=== PATIENT | male | born 1950 | race Caucasian/White ===

== ENCOUNTER → 2017-11-04 06:49 | Outpatient (CLI) | payer OTHER, SELFPAY ==
[2017-11-04 09:05] LABS: Alanine Aminotransferase 52 IU/L (21-72); Albumin Globulin Ratio 1.3 (1.0-2.8); Alkaline Phosphatase 52 U/L (38-126); Aspartate Aminotransferase 52 IU/L (17-59); Bilirubin Total 0.4 mg/dL (0.2-1.3); Blood Urea Nitrogen 35 mg/dL (9-20); Calcium 9.1 mg/dL (8.4-10.2); Carbon Dioxide 29 mmol/L (22-32); Chloride 102 mmol/L (98-107); Estimated Glomerular Filt Rate > 60.0 mL/min (>60); Glucose 90 mg/dL (80-110); HEMOLYSIS < 15 (0-50); Sodium 140 mmol/L (137-145)
[2017-11-06 09:57] LABS: Lipoprofile NMR SEE SEPARATE REPORTS
== END ==
PROVIDERS: Visit Provider Specialist
DX: E78.5 Hyperlipidemia, unspecified (principal)
CPT/HCPCS: 36415; 80053; 83704

== ENCOUNTER → 2017-12-24 09:13 | Outpatient (CLI) | payer OTHER, SELFPAY ==
[2017-12-24 11:02] LABS: Alanine Aminotransferase 52 IU/L (21-72); Albumin 4.5 g/dL (3.5-5.0); Albumin Globulin Ratio 1.6 (1.0-2.8); Alkaline Phosphatase 49 U/L (38-126); Aspartate Aminotransferase 51 IU/L (17-59); BUN Creatinine Ratio 22.2 (6-22); Bilirubin Total 0.5 mg/dL (0.2-1.3); Blood Urea Nitrogen 20 mg/dL (9-20); Calcium 9.9 mg/dL (8.4-10.2); Carbon Dioxide 32 mmol/L (22-32); Chloride 101 mmol/L (98-107); Estimated Glomerular Filt Rate > 60.0 mL/min (>60); Globulin 2.8 g/dL (1.7-4.1); Glucose 88 mg/dL (80-110); HEMOLYSIS < 15 (0-50); Potassium 5.2 mmol/L (3.4-5.1); Sodium 141 mmol/L (137-145); Total Protein 7.3 g/dL (6.3-8.2)
[2017-12-24 11:33] LABS: Prostate Specific Antigen Scrn 2.58 ng/mL (0.1-4.0)
== END ==
PROVIDERS: PCP Internal Medicine; Visit Provider Internal Medicine
DX: I25.10 Atherosclerotic heart disease of native coronary artery without angina pectoris (principal); Z12.5 Encounter for screening for malignant neoplasm of prostate
CPT/HCPCS: 36415; 80053; G0103

== ENCOUNTER 2018-06-27 00:54 | Emergency (ER) | payer OTHER, SELFPAY ==
[2018-06-27 01:00] VITALS: BP 161/80; PULSE 71; RESP 16; TEMP 36.5; O2SAT 99; BMI 26.4
--- NOTE | 2018-06-27 01:45 | ED.NECK ---
HPI - Neck Pain/Injury General Chief Complaint: Neck Pain/Injury Stated Complaint: NECK PAIN Time Seen by Provider: 06/27/18 01:44 Source: patient Mode of arrival: ambulatory Limitations: no limitations History of Present Illness HPI Narrative: Patient presents with 3 days of severe cervical pain. Pain is focused in the right mid neck. He has no exact on-call of the pain 3 days ago, he was working out but remembers no injury. He is significantly limit of motion in the neck. He was seen in a walk-in clinic and treated with Toradol followed by Karlos. He is on a muscle relaxant. Pain is still too severe to get enough relief to sleep. He has pain in rigidity. He has no weakness or numbness in his hands. He has no anterior neck pain or dysphagia. He has no difficulty with walking. He has no prior history of cervical injury. Related Data Home Medications Medication Instructions Recorded Confirmed MULTIVITAMIN (#MULTIPLE VITAMINS) 1 cap PO #0 11/10/11 06/26/18 aspirin 81 mg PO QDAY #0 12/29/16 06/26/18 ibuprofen 600 mg PO QID PRN 06/27/18 06/27/18 sildenafil 20 mg PO DAILY PRN 06/27/18 06/27/18 Previous Rx's Medication Instructions Recorded simvastatin 40 mg PO QDAY #30 12/15/11 zolpidem 10 mg tablet 10 mg PO HSP #30 tab 12/24/17 cyclobenzaprine 10 mg tablet 10 mg PO TID PRN #30 tab 06/26/18 meloxicam 15 mg tablet 15 mg PO .QHS #30 tab 06/26/18 hydrocodone-acetaminophen [Cazadero] 1 tab PO Q6H PRN #20 tab 06/27/18 Allergies Allergy/AdvReac Type Severity Reaction Status Date / Time No Known Drug Allergies Allergy Verified 06/27/18 01:04 Review of Systems Review of Systems ROS Unobtainable: All systems reviewed & are unremarkable except as noted in HPI and below Eyes Denies change in vision, Denies eye discharge, Denies irritation and Denies loss of vision ENT Ears, Nose, Mouth, and Throat: Denies change in voice, Denies dizziness, Denies dry mouth, Reports neck pain and Denies sore throat Cardiovascular Denies chest pain, Denies irregular heart rhythm, Denies lightheadedness and Denies palpitations Musculoskeletal Denies back pain, Reports neck pain, Denies numbness, Reports stiffness and Denies tingling Neurologic Denies dizziness, Denies loss of vision, Denies numbness and Denies tingling Endocrine Denies palpitations PFSH Medical History CAD (coronary atherosclerotic disease) (Chronic 12/10/11) Elevated prostate specific antigen (PSA) (Chronic 01/03/15) Hyperlipidemia (Acute) Abnormal PSA acceleration with normal PSA (Resolved 03/14/15) Tinea versicolor (Resolved 2012) Surgical History History of back surgery (Resolved 1979) Family History Father ASCVD (arteriosclerotic cardiovascular disease) Family/Other No problems noted. Mother No problems noted. Sister No problems noted. Sister No problems noted. Social History Smoking Status: Former smoker Exam Initial Vital Signs Initial Vital Signs: Vital Signs Temperature 97.7 F 06/27/18 01:00 Pulse Rate 71 06/27/18 01:00 Respiratory Rate 16 06/27/18 01:00 Blood Pressure 161/80 H 06/27/18 01:00 Pulse Oximetry 99 06/27/18 01:00 Const General: cooperative, well developed and acute distress Nutritional Appearance: well nourished Orientation: alert, awake, oriented x3 and not confused [facility] Head: normocephalic and atraumatic Nose: external nose normal Mouth: oral mucosae normal and moist mucous membranes Throat: posterior oropharynx normal, tonsils normal and uvula midline Neck Neck: normal visual inspection, No anterior neck swelling, No lymphadenopathy and other (Bilateral posterior neck pain. Stiffness, inability to rotate his neck.) Resp Effort & Inspection: normal respiratory effort, able to speak in complete sentences, no respiratory distress and no use of accessory muscles Auscultation: clear to auscultation bilaterally, no rales, no rhonchi and no wheezes Cardio Rate: regular rate Rhythm: regular rhythm Heart Sounds: no click, no gallops, no murmurs and no rubs Pulses: normal peripheral pulses Neuro General: alert, oriented x3, gait normal and no focal motor deficits Speech: speech normal Motor: muscle tone normal throughout Extrem General: full ROM Course Course Narrative: The patient has improved the Toradol and Valium. He has also received Cazadero prior to discharge. Orders Ordered: ED Orders 06/27/18 01:52 CT cervical spine wo con Stat Discontinued Medications Hydrocodone Bitart/Acetaminophen (Vicodin Prepack) 1 bottle MISC SEEINSTR ONE Stop: 06/27/18 04:09 Last Admin: 06/27/18 04:19 Dose: 1 bottle Diazepam (Valium) 5 mg PO NOW ONE Stop: 06/27/18 01:53 Last Admin: 06/27/18 02:16 Dose: 5 mg Ketorolac Tromethamine (Toradol) 30 mg IM NOW ONE Stop: 06/27/18 01:53 Last Admin: 06/27/18 02:16 Dose: 30 mg Vital Signs - 8 hr 06/27/18 01:00 Temperature 97.7 F Pulse Rate 71 Respiratory Rate 16 Blood Pressure 161/80 H Pulse Oximetry 99 MDM - Neck Pain/Injury Imaging Data C-spine CT: Radiologist's impression: Severe DJD with severe circumferential disc osteophytosis at multiple levels. Multiple severe stenosis is noted at C5-C6 and C6-C7. There is narrowing as the AP dimension of the central canal to approximately 5 mm. Cord compression is considered. Discharge Plan Departure Patient Disposition: Home Clinical Impression: Degenerative joint disease of cervical spine Instructions: DI for Neck Pain Activity Restrictions/Additional Instructions: Limited activity until pain is resolved. Continue Mobic daily for pain. Cazadero every 6 hr as needed for increased pain control, you may use the medication as often as every 4 hr as needed. Follow-up with Dr. Younger. You need a cervical spine MRI. Return to the ER as needed. Prescriptions: New hydrocodone-acetaminophen [Cazadero] 5-325 mg tablet 1 tab PO Q6H PRN (Reason: pain) Qty: 20 RF: 0 No Action cyclobenzaprine 10 mg tablet 10 mg PO TID PRN (Reason: muscle spasm) Qty: 30 RF: 0 meloxicam [Mobic] 15 mg tablet 15 mg PO .QHS Qty: 30 RF: 0 MULTIVITAMIN (#MULTIPLE VITAMINS) 1 cap PO Qty: 0 RF: 0 simvastatin 40 MG tablet 40 mg PO QDAY Qty: 30 RF: 0 aspirin 81 MG tablet,delayed release (DR/EC) 81 mg PO QDAY Qty: 0 RF: 0 zolpidem 10 mg tablet 10 mg PO HSP Qty: 30 RF: 2 ibuprofen 600 mg Tablet 600 mg PO QID PRN (Reason: Pain (Scale Score 1-3)) RF: 0 sildenafil 25 mg Tablet 20 mg PO DAILY PRN (Reason: Erectile Dysfunction) RF: 0
--- NOTE | 2018-06-27 01:52 | DI.CT.S_ITS ---
PROCEDURE: CT CERVICAL SPINE WO CON INDICATIONS: severe cervical pain TECHNIQUE: Noncontrast 3 mm thick sections acquired from the skull base to the T4 level. Sagittal and coronal reformats were then constructed. For radiation dose reduction, the following was used: automated exposure control, adjustment of mA and/or kV according to patient size. COMPARISON: [facility], , XR C-SPINE 4-6V, 01/07/2006, 14:16. FINDINGS: Image quality: Excellent. Bones: No fractures or dislocations. There is grade 1 anterolisthesis of C4 on C5. There is degenerative disc disease, severe at C5-C6, moderate at C3-C4 and C6-C7, and mild at other levels. There is sllbdbsi-rx-xghrtd central canal stenosis at C3-C4, C4-C5, C5-C6 and C6-C7. There is moderate bilateral facet arthropathy, most pronounced C2-C3 on the right and C3-C4 and C4-C5 on the left. Visualized superior ribs are intact. Soft tissues: Prevertebral soft tissues are normal in thickness. No paravertebral hematomas. No apical pneumothoraces. IMPRESSION: 1. Severe degenerative disc disease. 2. Moderate bilateral facet arthropathy. 3. Ogkjjtkh-ir-dospts central canal stenosis at C3-C4, C4-C5, C5-C6 and C6-7. No significant discrepancy with the shift supervisor radiology preliminary report. Dictated by: Nelly Hilton M.D. on 06/27/2018 at 7:48 Approved by: Nelly Hilton M.D. on 06/27/2018 at 7:54
[2018-06-27] MEDS: diazePAM 5 MG TABLET PO (02:16)
[2018-06-27] MEDS: KETOROLAC 60 MG/2 ML VIAL 30 MG IM (02:16)
[2018-06-27] MEDS: HYDROCODONE/ACET 5/325 PREPACK 1 BOTTLE MISC (04:19)
[2018-06-27 04:34] VITALS: BP 158/77; PULSE 69; RESP 15; O2SAT 99
== END 2018-06-27 04:37 | disposition home or self-care (01) ==
PROVIDERS: Emergency Provider Emergency Medicine; Family Provider Family Medicine; PCP Internal Medicine
DX: M47.812 Spondylosis without myelopathy or radiculopathy, cervical region (principal)
CPT/HCPCS: 72125; 96372; 99282; 99284; J1885

== ENCOUNTER → 2018-09-09 09:39 | Outpatient (CLI) | payer OTHER, SELFPAY ==
--- NOTE | 2018-09-09 09:46 | DI.RAD.S_ITS ---
PROCEDURE: XR THORACIC SPINE 3V INDICATIONS: back pain/neck pain TECHNIQUE: 2 views of the thoracic spine were acquired. COMPARISON: None. FINDINGS: Bones: No fractures or dislocations. No suspicious bony lesions. 12 pairs of ribs are noted, and appear intact where visualized. Degenerative disc disease throughout mid to lower thoracic spine is seen. Soft tissues: No paravertebral stripe thickening. IMPRESSION: [id number] degenerative disc disease throughout mid to lower thoracic spine. No acute compression fracture or spondylolisthesis. Dictated by: Shyam Aleman M.D. on 09/09/2018 at 11:17 Approved by: Shyam Aleman M.D. on 09/09/2018 at 11:19
--- NOTE | 2018-09-09 09:46 | DI.RAD.S_ITS ---
PROCEDURE: XR CERVICAL SPINE 4V OR 5V INDICATIONS: neck pain/back canales TECHNIQUE: 5 views of the cervical spine acquired. COMPARISON: None. FINDINGS: Bones: No fractures or dislocations to the C7-T1 level. Degenerative endplate changes and bilateral facet hypertrophic changes are noted at C4-5 through C6-7 levels. Oblique images demonstrate bilateral foraminal stenosis at C5-6 and C6-7 levels more prominent on the right side. Soft tissues: No prevertebral soft tissue swelling. IMPRESSION: Degenerative disc disease in mid to lower cervical spine with bilateral neuroforaminal narrowing at C5-6 and C6-7 levels. No acute compression fracture or spondylolisthesis. Dictated by: Shyam Aleman M.D. on 09/09/2018 at 11:13 Approved by: Shyam Aleman M.D. on 09/09/2018 at 11:17
--- NOTE | 2018-09-09 09:46 | DI.RAD.S_ITS ---
PROCEDURE: XR PELVIS 1-2V INDICATIONS: neck pain/back canales TECHNIQUE: 2 view(s) of the pelvis acquired. COMPARISON: None. FINDINGS: Bones: Moderate osteophytic changes are noted in bilateral hip joints, sacroiliac joints and symphysis pubis. No fracture or dislocation. No evidence of avascular necrosis of femoral heads. Soft tissues: Visualized bowel gas pattern is normal. No suspicious soft tissue calcifications. IMPRESSION: Osteoarthritis throughout bony pelvis. No SI joint ankylosis or erosion. No fracture or dislocation. Dictated by: Shyam Aleman M.D. on 09/09/2018 at 11:20 Approved by: Shyam Aleman M.D. on 09/09/2018 at 11:20
--- NOTE | 2018-09-09 09:46 | DI.RAD.S_ITS ---
PROCEDURE: XR LUMBAR SPINE 2-3V INDICATIONS: neck pain/back canales TECHNIQUE: 3 views of the lumbar spine were acquired. COMPARISON: None. FINDINGS: Bones: 5 [id number] vertebrae are present. There is straightening of normal lumbar lordosis. No spondylolisthesis. No acute vertebral body compression fractures. Moderate degenerative disc disease and bilateral facet arthrosis lower lumbar spine is seen more prominent at L4-5 and L5-S1 levels. No suspicious bony lesions. Soft tissues: Overlying bowel gas pattern is normal. No suspicious soft tissue calcifications. IMPRESSION: Degenerative disc disease throughout lumbar spine more prominent at L4-5 and L5-S1 levels. No acute compression fracture or spondylolisthesis. Dictated by: Shyam Aleman M.D. on 09/09/2018 at 11:12 Approved by: Shyam Aleman M.D. on 09/09/2018 at 11:13
== END ==
PROVIDERS: PCP Internal Medicine; Visit Provider Internal Medicine
DX: M54.9 Dorsalgia, unspecified (principal); M51.36 Other intervertebral disc degeneration, lumbar region; M51.37 Other intervertebral disc degeneration, lumbosacral region; M50.321 Other cervical disc degeneration at C4-C5 level; M51.34 Other intervertebral disc degeneration, thoracic region; M48.02 Spinal stenosis, cervical region; M47.816 Spondylosis without myelopathy or radiculopathy, lumbar region; M47.817 Spondylosis without myelopathy or radiculopathy, lumbosacral region; M16.0 Bilateral primary osteoarthritis of hip; M47.898 Other spondylosis, sacral and sacrococcygeal region
CPT/HCPCS: 72050; 72072; 72100; 72170

== ENCOUNTER 2018-09-14 13:00 | Outpatient (RCR) | payer OTHER, SELFPAY ==
--- NOTE | 2018-08-03 16:00 | PT.OIE ---
Current Diagnoses Cervicalgia (08/03/18) Past Medical History (Last Reviewed 06/28/18 @ 15:09 by Nemesio Younger MD) CAD (coronary atherosclerotic disease) (Chronic 12/10/11) Elevated prostate specific antigen (PSA) (Chronic 01/03/15) Hyperlipidemia (Acute) Abnormal PSA acceleration with normal PSA (Resolved 03/14/15) Tinea versicolor (Resolved 2012) Past Surgical History (Last Reviewed 06/28/18 @ 15:09 by Nemesio Younger MD) History of back surgery (Resolved 1979) Provider Visit Care Team Role Provider Type Nemesio Younger MD Attending Provider Physician Family Provider Primary Care Provider Specialty: Internal Medicine Address: [address] [place] [address], [facility] Email: [email or web address] Physical Therapy Initial Evaluation PT-OP-A Visit Information Start: 07/30/18 16:03 Freq: Status: Active Protocol: Document 08/03/18 09:08 LRN (Rec: 08/03/18 10:22 [facility] [id number]) Out-Patient Physical Therapy Visit Information Visit Information Visit Type Initial Evaluation Visit Start Time 09:08 Visit Stop Time 10:00 Total Visit Minutes 52 Visit Number 1 Number of FACILITIES DIRECTOR Visits 0 Evaluation Information Evaluation Date 08/03/18 Precautions Precautions Elevated prostate specific anteigen (PSA), UE DTR's absent, LE DTR's normal. Abnormal PSA acceleration with normal PSA History of back and neck pain (DJD of cervical spine) History of back surgery PT-OP-B Current Condition Start: 07/30/18 16:03 Freq: Status: Active Protocol: Document 08/03/18 09:08 LRN (Rec: 08/03/18 10:22 LRN [id number]) Current Condition History of Current Condition Onset Date 06/2018 Current Complaints Neck pain with returning to neutral after looking down and looking around History of Current Condition Pt reports insidious onset of neck pain over 3 days. He states he joined a gym and was doing squats keeping back straight and neck up and thinks maybe that is the reason for his onset of neck pain. Thurs morning did a class and that evening the neck was sore and by the next night he was having trouble sleeping and couldn't get comfortable. The following day he couldn't sleep at all because the pain was so severe . He went to ER at [facility] and CAT scan showed arthritis. He denies any tingling, numbness in the upper extremities. He was told by his physician that it was probably a pinched nerve. He took Oxycodone for 2-3 days, then muscle relaxors for 1 week and he started to get better. He reports just coming back from a 4 day ski trip with no noticeable challenges due to his neck. He still hurts if looking down over a prolonged period of time with pain on return to neutral. Can sleep at nights and is taking IBP in the morning. He is also taking CBD oil and reports he is 90% better. Prior Treatments and Tests CAT scan at [facility] Emergency Department. Treatment Goals Patient/Caregiver Goals Pt goal is improve ability to read for longer time and to look around without moving body. Pt goal is to be 100% better. Prior Functional Status Baseline Function- ADL's Independent Baseline Function- Mobility Independent Baseline Function- Other Limited with neck mobility due to age. Current Functional Impairments (Reported) Functional Limitations- ADL's Reading Looking over shoulders. 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 Therapy/Recovery Going on a medical mission for 15 days starting tomorrow. PT-OP-C Subjective Start: 07/30/18 16:03 Freq: Status: Active Protocol: Document 08/03/18 09:08 LRN (Rec: 08/03/18 10:22 LRN [id number]) Patient Questionnaires Neck Disability Index NDI Score 10 Neck Disability Index Impairment 20 to 39% Impaired (Score 10- 19) Quick Dash- Upper Extremity Quick Dash UE Score 0 Quick Dash UE Impairment 0% Impaired (Score 0) OP-PT Pain Assessment Pain Assessment Grid Paper Pain Assessment Grid Completed Yes Location Neck Pain Location Details Posterior neck, sometimes R side of head Intensity 2 Scale Used Numeric (1 - 10) Description Aching Tightness Frequency Intermittent Pain Aggravating Factors Position Pain Alleviating Factors Heat Home Pain Medication Use Pain Medications Used Yes: CBD Oil PT-OP-F Manual Assessment Start: 07/30/18 16:03 Freq: Status: Active Protocol: Document 08/03/18 09:08 LRN (Rec: 08/03/18 10:22 LRN [id number]) Manual Assessments Soft Tissue Assessment Soft Tissue Mobility Assessment Increased muscle tone in the R cervical paraspinals and upper shoulder muscles. Pain with palpation and tightness at the R suboccipital region. Joint Mobility Assessment Joint Mobility Assessment Decreased C6, C7 mobility for L rotation and C1 on C2 for L rotation (stuck in R rotation) . PT-OP-H Neuro Start: 07/30/18 16:03 Freq: Status: Active Protocol: Document 08/03/18 09:08 LRN (Rec: 08/03/18 10:22 LRN [id number]) Sensation Evaluation Gross Sensation Gross Sensation WNL Deep Tendon Reflex & Clonus Assessment Deep Tendon Reflex Bilateral Patellar Deep Tendon Reflex 2+ Normal Bilateral Brachioradialis Deep Tendon Reflex 1+ Diminished Bilateral Tricep Deep Tendon Reflex 0 Absent Bilateral Bicep Deep Tendon Reflex 0 Absent PT-OP-J Posture/Palpation/Skin Start: 07/30/18 16:03 Freq: Status: Active Protocol: Document 08/03/18 09:08 LRN (Rec: 08/03/18 10:22 LRN [id number]) Posture Evaluation Comments Posture Comments Straightened Cervical and Upper Thoracic spine. Level head. Palpation Assessment Location Neck Palpation Findings Soft Tissue Tightness Palpation Details Tightness of L Cervical paraspinals and Upper Trapezius. PT-OP-K Range of Motion Start: 07/30/18 16:03 Freq: Status: Active Protocol: Document 08/03/18 09:08 LRN (Rec: 08/03/18 10:22 LRN [id number]) Cervical Spine Range of Motion Cervical Spine Active Degrees Testing Position Sitting Flexion 45 Extension 45 Rotation Left 52 Rotation Right 40 Lateral Flexion Left 17 Lateral Flexion Right 9 ROM Limitations Pain Shoulder Goniometric Range of Motion Shoulder ROM Limitations Shoulder ROM Limitations Soft Tissue Tightness Comments R shoulder limited by prior injury. Shoulder AROM in sitting is: Flexion: 170 deg's bilaterally. Abduction: 160 deg's left, 142 deg's right. PT-OP-L Special Tests Start: 07/30/18 16:03 Freq: Status: Active Protocol: Document 08/03/18 09:08 LRN (Rec: 08/03/18 10:22 LRN [id number]) Special Tests Cervical Spine Special Tests Vertebral Artery Test Results Negative bilaterally Traction Test Results Positive for improved cervical mobility. Foraminal Compression Test Results Negative PT-OP-Q Treatments Start: 07/30/18 16:03 Freq: Status: Active Protocol: Document 08/03/18 09:08 LRN (Rec: 08/03/18 10:22 LRN [id number]) Therapeutic Exercises Sitting Exercises Active extension Sitting Exercise Name Chin tuck with neck extension, hands behind neck for support Reps/Minutes 10x Cervical stretch Sitting Exercise Name Rotation, SB, Chin tuck- extension Side bilateral Self-Care/Home Management Treatment Education Patient Education Home Exercise Program Pain Management Activities Self-Care/Home Management Activities Issued and reviewed HEP: C/S stretch into rotation, SB, ext . & Active C/S extension. Discussed methods for pain/ inflammation management (ice/ heat). PT-OP-T Assessment and Plan Start: 07/30/18 16:03 Freq: Status: Active Protocol: Document 08/03/18 09:08 LRN (Rec: 08/03/18 10:22 LRN [id number]) Physical Therapy Assessment Rehab Potential Rehabilitation Potential Excellent Evaluation Complexity Number of Personal Factors/Comorbidities 1-2 Number of Body Systems Impaired 3 Clinical Presentation at Evaluation Stable Impairments Impairments Activity Tolerance Pain ROM Other Concerns Age Related Concerns Effect on work and recreational activities. Barriers to Rehabilitation Social activities (medical mission) Goals Three Impairment Pain with prolonged positioning in a flexed cervical position Vice President Of Customer Service Goal (LTG) Pt will be able to read and return to neutral without pain . LTG Duration 10/08/18 Two Impairment Decreased Cervical AROM Vice President Of Customer [employer] Goal (LTG) Pt will improve his cervical rotation mobility to improve his safety with driving LTG Duration 09/08/18 One Impairment Lacks appropriate HEP Vice President Of Customer Service Goal (LTG) Pt will be educated in a self care HEP. LTG Duration 10/08/18 Assessment Summary Assessment Pt presents with a mechanical dysfunction of the cervical spine and soft tissue tightness of the left cervical and scapular stabilizer muscles. The pt has improved over time and presents to therapy today with intermittent onset of cervical pain, primarily with prolonged cervical flexion and with active cervical rotation . He denies numbness or tingling in his upper extremities but reports occasional onset of pain in the R side of his head indicating C2, C3 dermatome involvement. It should be noted that I was unable to elicit UE DTR's, but his LE DTR's were normal, which may correlate with his elevated PSA. Physical Therapy Plan Frequency and Duration Frequency of Treatment 2x/Week Plan of Care Start Date 08/03/18 Plan of Care End Date 10/08/18 Therapeutic Interventions Therapeutic Interventions Home Exercise Program Joint Mobilizations Manual Therapy Neuromuscular Re-education Patient/Caregiver Education Self-Care/Home Management Soft Tissue Mobilization Therapeutic Exercises Modalities Cold Pack/Ice Massage Hot Packs Next Visit Focus/Plan Next Note Type Treatment Note Next Visit Plan Reassess Cervical mobility, assess cervical strength, Self care instructions with possible DC if no further symptoms persist. If needed, manual therapy for normalizing STM and joint mobility of the cervical spine. No modalities except cryotherapy or MH due to elevated PSA.
--- NOTE | 2018-08-03 16:00 | PT.OPPOC ---
Current Diagnoses Cervicalgia (08/03/18) Provider Visit Care Team Role Provider Type Nemesio Younger MD Attending Provider Physician Family Provider Primary Care Provider Specialty: Internal Medicine Address: [address] [place] [address], [id number] Email: [email or web address] Plan Of Care PT-OP-T Assessment and Plan Start: 07/30/18 16:03 Freq: Status: Active Protocol: Document 08/03/18 09:08 LRN (Rec: 08/03/18 10:22 LRN [id number]) Physical Therapy Assessment Rehab Potential Rehabilitation Potential Excellent Evaluation Complexity Number of Personal Factors/Comorbidities 1-2 Number of Body Systems Impaired 3 Clinical Presentation at Evaluation Stable Impairments Impairments Activity Tolerance Pain ROM Other Concerns Age Related Concerns Effect on work and recreational activities. Barriers to Rehabilitation Social activities (medical mission) Goals Three Impairment Pain with prolonged positioning in a flexed cervical position Residential Goal (LTG) Pt will be able to read and return to neutral without pain . LTG Duration 10/08/18 Two Impairment Decreased Cervical AROM Residential Goal (LTG) Pt will improve his cervical rotation mobility to improve his safety with driving LTG Duration 09/08/18 One Impairment Lacks appropriate HEP Residential Goal (LTG) Pt will be educated in a self care HEP. LTG Duration 10/08/18 Assessment Summary Assessment Pt presents with a mechanical dysfunction of the cervical spine and soft tissue tightness of the left cervical and scapular stabilizer muscles. The pt has improved over time and presents to therapy today with intermittent onset of cervical pain, primarily with prolonged cervical flexion and with active cervical rotation . He denies numbness or tingling in his upper extremities but reports occasional onset of pain in the R side of his head indicating C2, C3 dermatome involvement. It should be noted that I was unable to elicit UE DTR's, but his LE DTR's were normal, which may correlate with his elevated PSA. Physical Therapy Plan Frequency and Duration Frequency of Treatment 2x/Week Plan of Care Start Date 08/03/18 Plan of Care End Date 10/08/18 Therapeutic Interventions Therapeutic Interventions Home Exercise Program Joint Mobilizations Manual Therapy Neuromuscular Re-education Patient/Caregiver Education Self-Care/Home Management Soft Tissue Mobilization Therapeutic Exercises Modalities Cold Pack/Ice Massage Hot Packs Next Visit Focus/Plan Next Note Type Treatment Note Next Visit Plan Reassess Cervical mobility, assess cervical strength, Self care instructions with possible DC if no further symptoms persist. If needed, manual therapy for normalizing STM and joint mobility of the cervical spine. No modalities except cryotherapy or MH due to elevated PSA. Plan of Care Dates Plan of Care Start Date 08/03/18 Plan of Care End Date 10/08/18 Please Sign and Return: I have reviewed this Plan of Care and certify that the skilled therapy services above are required to meet the patient?s needs. Physician Signature Date Printed Name and Credentials Clinical Instructor Signature Printed Name and Credentials
--- NOTE | 2018-08-17 14:46 | PT.OTN ---
Current Diagnoses Cervicalgia (08/17/18) Physical Therapy Treatment Note PT-OP-A Visit Information Start: 07/30/18 16:03 Freq: Status: Active Protocol: Document 08/17/18 10:30 GGD (Rec: 08/17/18 14:46 GGD [email or web address]) Out-Patient Physical Therapy Visit Information Visit Information Visit Type Treatment Note Visit Start Time 10:30 Visit Stop Time 11:10 Total Visit Minutes 40 Visit Number 2 Number of CHORUS MASTER Visits 1 Evaluation Information Evaluation Date 08/03/18 PT-OP-B Current Condition Start: 07/30/18 16:03 Freq: Status: Active Protocol: Document 08/03/18 09:08 LRN (Rec: 08/03/18 10:22 LRN [id number]) Current Condition History of Current Condition Onset Date 06/2018 Current Complaints Neck pain with returning to neutral after looking down and looking around History of Current Condition Pt reports insidious onset of neck pain over 3 days. He states he joined a gym and was doing squats keeping back straight and neck up and thinks maybe that is the reason for his onset of neck pain. Th morning did a class and that evening the neck was sore and by the next night he was having trouble sleeping and couldn't get comfortable. The following day he couldn't sleep at all because the pain was so severe . He went to ER at [facility] and CAT scan showed arthritis. He denies any tingling, numbness in the upper extremities. He was told by his physician that it was probably a pinched nerve. He took Oxycodone for 2-3 days, then muscle relaxors for 1 week and he started to get better. He reports just coming back from a 4 day ski trip with no noticeable challenges due to his neck. He still hurts if looking down over a prolonged period of time with pain on return to neutral. Can sleep at nights and is taking IBP in the morning. He is also taking CBD oil and reports he is 90% better. Prior Treatments and Tests CAT scan at [facility] Emergency Department. Treatment Goals Patient/Caregiver Goals Pt goal is improve ability to read for longer time and to look around without moving body. Pt goal is to be 100% better. Prior Functional Status Baseline Function- ADL's Independent Baseline Function- Mobility Independent Baseline Function- Other Limited with neck mobility due to age. Current Functional Impairments (Reported) Functional Limitations- ADL's Reading Looking over shoulders. 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 Therapy/Recovery Going on a medical mission for 15 days starting tomorrow. PT-OP-C Subjective Start: 07/30/18 16:03 Freq: Status: Active Protocol: Document 08/17/18 10:30 GGD (Rec: 08/17/18 14:46 GGD [email or web address]) OP-PT Subjective Patient Comments Patient Comments Pt states that he was feeling better, but it's back to about where it was at initial eval. PT-OP-F Manual Assessment Start: 07/30/18 16:03 Freq: Status: Active Protocol: Document 08/03/18 09:08 LRN (Rec: 08/03/18 10:22 LRN [id number]) Manual Assessments Soft Tissue Assessment Soft Tissue Mobility Assessment Increased muscle tone in the R cervical paraspinals and upper shoulder muscles. Pain with palpation and tightness at the R suboccipital region. Joint Mobility Assessment Joint Mobility Assessment Decreased C6, C7 mobility for L rotation and C1 on C2 for L rotation (stuck in R rotation) . PT-OP-H Neuro Start: 07/30/18 16:03 Freq: Status: Active Protocol: Document 08/03/18 09:08 LRN (Rec: 08/03/18 10:22 LRN [id number]) Sensation Evaluation Gross Sensation Gross Sensation WNL Deep Tendon Reflex & Clonus Assessment Deep Tendon Reflex Bilateral Patellar Deep Tendon Reflex 2+ Normal Bilateral Brachioradialis Deep Tendon Reflex 1+ Diminished Bilateral Tricep Deep Tendon Reflex 0 Absent Bilateral Bicep Deep Tendon Reflex 0 Absent PT-OP-J Posture/Palpation/Skin Start: 07/30/18 16:03 Freq: Status: Active Protocol: Document 08/03/18 09:08 LRN (Rec: 08/03/18 10:22 LRN [id number]) Posture Evaluation Comments Posture Comments Straightened Cervical and Upper Thoracic spine. Level head. Palpation Assessment Location Neck Palpation Findings Soft Tissue Tightness Palpation Details Tightness of L Cervical paraspinals and Upper Trapezius. PT-OP-K Range of Motion Start: 07/30/18 16:03 Freq: Status: Active Protocol: Document 08/17/18 10:30 GGD (Rec: 08/17/18 14:46 GGD [email or web address]) Cervical Spine Range of Motion Cervical Spine Active Degrees Testing Position Sitting Flexion 45 Extension 45 Rotation Left 52 Rotation Right 45 Lateral Flexion Left 25 Lateral Flexion Right 20 PT-OP-L Special Tests Start: 07/30/18 16:03 Freq: Status: Active Protocol: Document 08/03/18 09:08 LRN (Rec: 08/03/18 10:22 LRN [id number]) Special Tests Cervical Spine Special Tests Vertebral Artery Test Results Negative bilaterally Traction Test Results Positive for improved cervical mobility. Foraminal Compression Test Results Negative PT-OP-Q Treatments Start: 07/30/18 16:03 Freq: Status: Active Protocol: Document 08/17/18 10:30 GGD (Rec: 08/17/18 14:46 GGD [email or web address]) Therapeutic Exercises Supine Exercises 1 Supine Exercise Name UT str. Reps/Minutes 2 Comments manual Sitting Exercises Active extension Sitting Exercise Name Chin tuck with neck extension, hands behind neck for support Reps/Minutes 10x Cervical stretch Sitting Exercise Name Rotation, SB, Chin tuck- extension Side bilateral Manual Therapy Treatment Soft Tissue Mobilization 1 Body Location UT, lev. scap and S/C paraspinals Mobilization Type Myofascial Release Rolling Self-Care/Home Management Treatment Education Other Education Sleep position and pillow support. PT-OP-T Assessment and Plan Start: 07/30/18 16:03 Freq: Status: Active Protocol: Document 08/17/18 10:30 GGD (Rec: 08/17/18 14:46 GGD [email or web address]) Physical Therapy Assessment Assessment Summary Assessment Pt had decrease pain and improved c/s ROM. He had decrease pain with cervical flexion, but still had C/O pain. He needed min cues for exercise technique. Physical Therapy Plan Frequency and Duration Frequency of Treatment 2x/Week Plan of Care Start Date 08/03/18 Plan of Care End Date 10/08/18 Next Visit Focus/Plan Next Note Type Treatment Note Next Visit Plan Reassess Cervical mobility, assess cervical strength, Self care instructions with possible DC if no further symptoms persist. If needed, manual therapy for normalizing STM and joint mobility of the cervical spine. No modalities except cryotherapy or MH due to elevated PSA.
--- NOTE | 2018-08-20 15:35 | PT.OTN ---
Current Diagnoses Cervicalgia (08/20/18) Physical Therapy Treatment Note PT-OP-A Visit Information Start: 07/30/18 16:03 Freq: Status: Active Protocol: Document 08/20/18 15:07 SA (Rec: 08/20/18 15:34 SA [email or web address]) Out-Patient Physical Therapy Visit Information Visit Information Visit Type Treatment Note Visit Start Time 12:15 Visit Stop Time 12:57 Total Visit Minutes 42 Visit Number 3 Number of GROUND HAND Visits 2 PT-OP-B Current Condition Start: 07/30/18 16:03 Freq: Status: Active Protocol: Document 08/03/18 09:08 LRN (Rec: 08/03/18 10:22 LRN [id number]) Current Condition History of Current Condition Onset Date 06/2018 Current Complaints Neck pain with returning to neutral after looking down and looking around History of Current Condition Pt reports insidious onset of neck pain over 3 days. He states he joined a gym and was doing squats keeping back straight and neck up and thinks maybe that is the reason for his onset of neck pain. Th morning did a class and that evening the neck was sore and by the next night he was having trouble sleeping and couldn't get comfortable. The following day he couldn't sleep at all because the pain was so severe . He went to ER at [facility] and CAT scan showed arthritis. He denies any tingling, numbness in the upper extremities. He was told by his physician that it was probably a pinched nerve. He took Oxycodone for 2-3 days, then muscle relaxors for 1 week and he started to get better. He reports just coming back from a 4 day ski trip with no noticeable challenges due to his neck. He still hurts if looking down over a prolonged period of time with pain on return to neutral. Can sleep at nights and is taking IBP in the morning. He is also taking CBD oil and reports he is 90% better. Prior Treatments and Tests CAT scan at [facility] Emergency Department. Treatment Goals Patient/Caregiver Goals Pt goal is improve ability to read for longer time and to look around without moving body. Pt goal is to be 100% better. Prior Functional Status Baseline Function- ADL's Independent Baseline Function- Mobility Independent Baseline Function- Other Limited with neck mobility due to age. Current Functional Impairments (Reported) Functional Limitations- ADL's Reading Looking over shoulders. 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 Therapy/Recovery Going on a medical mission for 15 days starting tomorrow. PT-OP-C Subjective Start: 07/30/18 16:03 Freq: Status: Active Protocol: Document 08/20/18 15:07 SA (Rec: 08/20/18 15:34 SA [email or web address]) OP-PT Subjective Patient Comments Patient Comments Pt tolerated [place] trip well, had some trouble sleeping but has resloved that and cervical pain is greatly diminished. PT-OP-F Manual Assessment Start: 07/30/18 16:03 Freq: Status: Active Protocol: Document 08/03/18 09:08 LRN (Rec: 08/03/18 10:22 LRN [id number]) Manual Assessments Soft Tissue Assessment Soft Tissue Mobility Assessment Increased muscle tone in the R cervical paraspinals and upper shoulder muscles. Pain with palpation and tightness at the R suboccipital region. Joint Mobility Assessment Joint Mobility Assessment Decreased C6, C7 mobility for L rotation and C1 on C2 for L rotation (stuck in R rotation) . PT-OP-H Neuro Start: 07/30/18 16:03 Freq: Status: Active Protocol: Document 08/03/18 09:08 LRN (Rec: 08/03/18 10:22 LRN [id number]) Sensation Evaluation Gross Sensation Gross Sensation WNL Deep Tendon Reflex & Clonus Assessment Deep Tendon Reflex Bilateral Patellar Deep Tendon Reflex 2+ Normal Bilateral Brachioradialis Deep Tendon Reflex 1+ Diminished Bilateral Tricep Deep Tendon Reflex 0 Absent Bilateral Bicep Deep Tendon Reflex 0 Absent PT-OP-J Posture/Palpation/Skin Start: 07/30/18 16:03 Freq: Status: Active Protocol: Document 08/03/18 09:08 LRN (Rec: 08/03/18 10:22 LRN [id number]) Posture Evaluation Comments Posture Comments Straightened Cervical and Upper Thoracic spine. Level head. Palpation Assessment Location Neck Palpation Findings Soft Tissue Tightness Palpation Details Tightness of L Cervical paraspinals and Upper Trapezius. PT-OP-K Range of Motion Start: 07/30/18 16:03 Freq: Status: Active Protocol: Document 08/17/18 10:30 GGD (Rec: 08/17/18 14:46 GGD [email or web address]) Cervical Spine Range of Motion Cervical Spine Active Degrees Testing Position Sitting Flexion 45 Extension 45 Rotation Left 52 Rotation Right 45 Lateral Flexion Left 25 Lateral Flexion Right 20 PT-OP-L Special Tests Start: 07/30/18 16:03 Freq: Status: Active Protocol: Document 08/03/18 09:08 LRN (Rec: 08/03/18 10:22 LRN [id number]) Special Tests Cervical Spine Special Tests Vertebral Artery Test Results Negative bilaterally Traction Test Results Positive for improved cervical mobility. Foraminal Compression Test Results Negative PT-OP-Q Treatments Start: 07/30/18 16:03 Freq: Status: Active Protocol: Document 08/20/18 15:07 SA (Rec: 08/20/18 15:34 SA [email or web address]) Therapeutic Exercises Supine Exercises 1 Supine Exercise Name UT str. Reps/Minutes 2 Comments manual Sitting Exercises Seated UT stretch Side bilateral Reps/Minutes 30 x 2 each Active extension Sitting Exercise Name Chin tuck with neck extension, hands behind neck for support Reps/Minutes 15x Cervical stretch Sitting Exercise Name Rotation, SB, Chin tuck- extension Side bilateral Standing Exercises Scapular Rows Side bilateral Equipment Used LV 2 TB Reps/Minutes 20x Manual Therapy Treatment Soft Tissue Mobilization 1 Body Location UT, lev. scap and S/C paraspinals Mobilization Type Myofascial Release Rolling Intensity/Depth Moderate Comments Passive manual stretching Cervical SB and rotation B PT-OP-T Assessment and Plan Start: 07/30/18 16:03 Freq: Status: Active Protocol: Document 08/20/18 15:07 SA (Rec: 08/20/18 15:34 SA [email or web address]) Physical Therapy Assessment Assessment Summary Assessment Pt with very minimal sx, slight pain with end range cervical rotation R>L. Sleeping issue is resolved and pt is exercising at home daily with no aggrivation of sx. Physical Therapy Plan Next Visit Focus/Plan Next Note Type Treatment Note Next Visit Plan Provided pt with chin tucks and UT stretching for HEP, fairly sx free with performance of ADLs and exercise routine. Assess next visit for d/c.
--- NOTE | 2018-08-24 11:32 | PT.OTN ---
Current Diagnoses Cervicalgia (08/24/18) Physical Therapy Treatment Note PT-OP-A Visit Information Start: 07/30/18 16:03 Freq: Status: Active Protocol: Document 08/24/18 11:16 SA (Rec: 08/24/18 11:32 SA [email or web address]) Out-Patient Physical Therapy Visit Information Visit Information Visit Type Treatment Note Visit Start Time 09:45 Visit Stop Time 10:25 Total Visit Minutes 40 Visit Number 4 Number of SPA COORDINATOR Visits 3 PT-OP-B Current Condition Start: 07/30/18 16:03 Freq: Status: Active Protocol: Document 08/03/18 09:08 LRN (Rec: 08/03/18 10:22 LRN [id number]) Current Condition History of Current Condition Onset Date 06/2018 Current Complaints Neck pain with returning to neutral after looking down and looking around History of Current Condition Pt reports insidious onset of neck pain over 3 days. He states he joined a gym and was doing squats keeping back straight and neck up and thinks maybe that is the reason for his onset of neck pain. Th morning did a class and that evening the neck was sore and by the next night he was having trouble sleeping and couldn't get comfortable. The following day he couldn't sleep at all because the pain was so severe . He went to ER at [facility] and CAT scan showed arthritis. He denies any tingling, numbness in the upper extremities. He was told by his physician that it was probably a pinched nerve. He took Oxycodone for 2-3 days, then muscle relaxors for 1 week and he started to get better. He reports just coming back from a 4 day ski trip with no noticeable challenges due to his neck. He still hurts if looking down over a prolonged period of time with pain on return to neutral. Can sleep at nights and is taking IBP in the morning. He is also taking CBD oil and reports he is 90% better. Prior Treatments and Tests CAT scan at [facility] Emergency Department. Treatment Goals Patient/Caregiver Goals Pt goal is improve ability to read for longer time and to look around without moving body. Pt goal is to be 100% better. Prior Functional Status Baseline Function- ADL's Independent Baseline Function- Mobility Independent Baseline Function- Other Limited with neck mobility due to age. Current Functional Impairments (Reported) Functional Limitations- ADL's Reading Looking over shoulders. 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 Therapy/Recovery Going on a medical mission for 15 days starting tomorrow. PT-OP-C Subjective Start: 07/30/18 16:03 Freq: Status: Active Protocol: Document 08/24/18 11:16 SA (Rec: 08/24/18 11:32 SA [email or web address]) OP-PT Subjective Patient Comments Patient Comments Pt reports that turning head with driving is still causing sx as well as returning nead to neutral after prolonged cervical flexion. PT-OP-F Manual Assessment Start: 07/30/18 16:03 Freq: Status: Active Protocol: Document 08/03/18 09:08 LRN (Rec: 08/03/18 10:22 LRN [id number]) Manual Assessments Soft Tissue Assessment Soft Tissue Mobility Assessment Increased muscle tone in the R cervical paraspinals and upper shoulder muscles. Pain with palpation and tightness at the R suboccipital region. Joint Mobility Assessment Joint Mobility Assessment Decreased C6, C7 mobility for L rotation and C1 on C2 for L rotation (stuck in R rotation) . PT-OP-H Neuro Start: 07/30/18 16:03 Freq: Status: Active Protocol: Document 08/03/18 09:08 LRN (Rec: 08/03/18 10:22 LRN [id number]) Sensation Evaluation Gross Sensation Gross Sensation WNL Deep Tendon Reflex & Clonus Assessment Deep Tendon Reflex Bilateral Patellar Deep Tendon Reflex 2+ Normal Bilateral Brachioradialis Deep Tendon Reflex 1+ Diminished Bilateral Tricep Deep Tendon Reflex 0 Absent Bilateral Bicep Deep Tendon Reflex 0 Absent PT-OP-J Posture/Palpation/Skin Start: 07/30/18 16:03 Freq: Status: Active Protocol: Document 08/03/18 09:08 LRN (Rec: 08/03/18 10:22 LRN [id number]) Posture Evaluation Comments Posture Comments Straightened Cervical and Upper Thoracic spine. Level head. Palpation Assessment Location Neck Palpation Findings Soft Tissue Tightness Palpation Details Tightness of L Cervical paraspinals and Upper Trapezius. PT-OP-K Range of Motion Start: 07/30/18 16:03 Freq: Status: Active Protocol: Document 08/17/18 10:30 GGD (Rec: 08/17/18 14:46 GGD [email or web address]) Cervical Spine Range of Motion Cervical Spine Active Degrees Testing Position Sitting Flexion 45 Extension 45 Rotation Left 52 Rotation Right 45 Lateral Flexion Left 25 Lateral Flexion Right 20 PT-OP-L Special Tests Start: 07/30/18 16:03 Freq: Status: Active Protocol: Document 08/03/18 09:08 LRN (Rec: 08/03/18 10:22 LRN [id number]) Special Tests Cervical Spine Special Tests Vertebral Artery Test Results Negative bilaterally Traction Test Results Positive for improved cervical mobility. Foraminal Compression Test Results Negative PT-OP-Q Treatments Start: 07/30/18 16:03 Freq: Status: Active Protocol: Document 08/24/18 11:16 SA (Rec: 08/24/18 11:32 SA [email or web address]) Therapeutic Exercises Supine Exercises 1 Supine Exercise Name UT str. Reps/Minutes 2 Comments manual Sitting Exercises Seated UT stretch Side bilateral Reps/Minutes 30 x 2 each Active extension Sitting Exercise Name Chin tuck with neck extension, hands behind neck for support Reps/Minutes 15x Cervical stretch Sitting Exercise Name Rotation, SB, Chin tuck- extension Side bilateral Manual Therapy Treatment Soft Tissue Mobilization 1 Body Location UT, lev. scap and S/C paraspinals Mobilization Type Myofascial Release Rolling Intensity/Depth Moderate Comments Passive manual stretching Cervical SB and rotation B Joint Mobilizations c-spine rotational mobs Joint C4-5 Grade II Body Position Supine Comments R and L rotation Manual Traction c-spine manual traction Body Position Supine Reps/Duration 10 x 10 PT-OP-T Assessment and Plan Start: 07/30/18 16:03 Freq: Status: Active Protocol: Document 08/24/18 11:16 SA (Rec: 08/24/18 11:32 SA [email or web address]) Physical Therapy Assessment Assessment Summary Assessment C-spine AROM: Rot R 43 degrees , Rot L 50 degrees, R SB 15 degrees and L SB 18 degrees. Pt shows improvement with R SB of 6 degrees but similar measurments at IE. Physical Therapy Plan Next Visit Focus/Plan Next Note Type Treatment Note Next Visit Plan Cont to address cervical rotation, SB and ext with appropriate joint mobs/ mobilization with movement.
--- NOTE | 2018-08-26 13:11 | PT.OTN ---
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 He states he joined a gym and was doing squats keeping back straight and neck up and thinks maybe that is the reason for his onset of neck pain. Th morning did a class and that evening the neck was sore and by the next night he was having trouble sleeping and couldn't get comfortable. The following day he couldn't sleep at all because the pain was so severe . He went to ER at [facility] and CAT scan showed arthritis. He denies any tingling, numbness in the upper extremities. He was told by his physician that it was probably a pinched nerve. He took Oxycodone for 2-3 days, then muscle relaxors for 1 week and he started to get better. He reports just coming back from a 4 day ski trip with no noticeable challenges due to his neck. He still hurts if looking down over a prolonged period of time with pain on return to neutral. Can sleep at nights and is taking IBP in the morning. He is also taking CBD oil and reports he is 90% better. Prior Treatments and Tests CAT scan at [facility] Emergency Department. Treatment Goals Patient/Caregiver Goals Pt goal is improve ability to read for longer time and to look around without moving body. Pt goal is to be 100% better. Prior Functional Status Baseline Function- ADL's Independent Baseline Function- Mobility Independent Baseline Function- Other Limited with neck mobility due to age. Current Functional Impairments (Reported) Functional Limitations- ADL's Reading Looking over shoulders. 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 PT-OP-C Subjective Start: 07/30/18 16:03 Freq: Status: Active Protocol: Document 08/26/18 13:06 EA (Rec: 08/26/18 13:11 EA [id number]) OP-PT Subjective Patient Comments Patient Comments Pt reports neck is much feeling better. PT-OP-F Manual Assessment Start: 07/30/18 16:03 Freq: Status: Active Protocol: Document 08/03/18 09:08 LRN (Rec: 08/03/18 10:22 LRN [id number]) Manual Assessments Soft Tissue Assessment Soft Tissue Mobility Assessment Increased muscle tone in the R cervical paraspinals and upper shoulder muscles. Pain with palpation and tightness at the R suboccipital region. Joint Mobility Assessment Joint Mobility Assessment Decreased C6, C7 mobility for L rotation and C1 on C2 for L rotation (stuck in R rotation) . PT-OP-H Neuro Start: 07/30/18 16:03 Freq: Status: Active Protocol: Document 08/03/18 09:08 LRN (Rec: 08/03/18 10:22 LRN [id number]) Sensation Evaluation Gross Sensation Gross Sensation WNL Deep Tendon Reflex & Clonus Assessment Deep Tendon Reflex Bilateral Patellar Deep Tendon Reflex 2+ Normal Bilateral Brachioradialis Deep Tendon Reflex 1+ Diminished Bilateral Tricep Deep Tendon Reflex 0 Absent Bilateral Bicep Deep Tendon Reflex 0 Absent PT-OP-J Posture/Palpation/Skin Start: 07/30/18 16:03 Freq: Status: Active Protocol: Document 08/03/18 09:08 LRN (Rec: 08/03/18 10:22 LRN [id number]) Posture Evaluation Comments Posture Comments Straightened Cervical and Upper Thoracic spine. Level head. Palpation Assessment Location Neck Palpation Findings Soft Tissue Tightness Palpation Details Tightness of L Cervical paraspinals and Upper Trapezius. PT-OP-K Range of Motion Start: 07/30/18 16:03 Freq: Status: Active Protocol: Document 08/17/18 10:30 GGD (Rec: 08/17/18 14:46 GGD [id number]) Cervical Spine Range of Motion Cervical Spine Active Degrees Testing Position Sitting Flexion 45 Extension 45 Rotation Left 52 Rotation Right 45 Lateral Flexion Left 25 Lateral Flexion Right 20 PT-OP-L Special Tests Start: 07/30/18 16:03 Freq: Status: Active Protocol: Document 08/03/18 09:08 LRN (Rec: 08/03/18 10:22 LRN [id number]) Special Tests Cervical Spine Special Tests Vertebral Artery Test Results Negative bilaterally Traction Test Results Positive for improved cervical mobility. Foraminal Compression Test Results Negative PT-OP-Q Treatments Start: 07/30/18 16:03 Freq: Status: Active Protocol: Document 08/26/18 13:06 EA (Rec: 08/26/18 13:11 EA [id number]) Therapeutic Exercises Supine Exercises 3 Supine Exercise Name Scalenes, SF,flexors, rotator stretch Reps/Minutes x 15SH x 2 reps 2 Supine Exercise Name AROM: cervical F/SF/Rot Reps/Minutes x 12 reps 1 Supine Exercise Name UT str. Reps/Minutes 2 Comments manual Sitting Exercises Seated UT stretch Side bilateral Reps/Minutes 30 x 2 each Active extension Sitting Exercise Name Chin tuck with neck extension, hands behind neck for support Reps/Minutes 15x Manual Therapy Treatment Soft Tissue Mobilization 1 Body Location UT, lev. scap and S/C paraspinals Mobilization Type Myofascial Release Rolling Intensity/Depth Moderate Comments Passive manual stretching Cervical SB and rotation B PT-OP-R Modalities Start: 07/30/18 16:03 Freq: Status: Active Protocol: Document 08/26/18 13:06 EA (Rec: 08/26/18 13:11 EA [id number]) Hot Pack/Cold Pack Treatment Hot Pack Location cervical region Treatment Duration (minutes) 10 PT-OP-T Assessment and Plan Start: 07/30/18 16:03 Freq: Status: Active Protocol: Document 08/26/18 13:06 EA (Rec: 08/26/18 13:11 EA [id number]) Physical Therapy Assessment Assessment Summary Assessment Tolerated treatment well. Patient is progressing well. Physical Therapy Plan Next Visit Focus/Plan Next Note Type Treatment Note Next Visit Plan Cont to address cervical rotation, SB and ext with approriate joint mobs/ mobilzation with movment.
--- NOTE | 2018-09-01 14:53 | PT.OTN ---
Current Diagnoses Cervicalgia (09/01/18) Physical Therapy Treatment Note PT-OP-A Visit Information Start: 07/30/18 16:03 Freq: Status: Active Protocol: Document 09/01/18 14:45 EA (Rec: 09/01/18 14:52 EA [id number]) Out-Patient Physical Therapy Visit Information Visit Information Visit Type Treatment Note Visit Start Time 13:45 Visit Stop Time 14:38 Total Visit Minutes 48 Visit Number 6 PT-OP-B Current Condition Start: 07/30/18 16:03 Freq: Status: Active Protocol: Document 08/03/18 09:08 LRN (Rec: 08/03/18 10:22 LRN [id number]) Current Condition History of Current Condition Onset Date 06/2018 Current Complaints Neck pain with returning to neutral after looking down and looking around History of Current Condition Pt reports insidious onset of neck pain over 3 days. He states he joined a gym and was doing squats keeping back straight and neck up and thinks maybe that is the reason for his onset of neck pain. Th morning did a class and that evening the neck was sore and by the next night he was having trouble sleeping and couldn't get comfortable. The following day he couldn't sleep at all because the pain was so severe . He went to ER at [facility] and CAT scan showed arthritis. He denies any tingling, numbness in the upper extremities. He was told by his physician that it was probably a pinched nerve. He took Oxycodone for 2-3 days, then muscle relaxors for 1 week and he started to get better. He reports just coming back from a 4 day ski trip with no noticeable challenges due to his neck. He still hurts if looking down over a prolonged period of time with pain on return to neutral. Can sleep at nights and is taking IBP in the morning. He is also taking CBD oil and reports he is 90% better. Prior Treatments and Tests CAT scan at [facility] Emergency Department. Treatment Goals Patient/Caregiver Goals Pt goal is improve ability to read for longer time and to look around without moving body. Pt goal is to be 100% better. Prior Functional Status Baseline Function- ADL's Independent Baseline Function- Mobility Independent Baseline Function- Other Limited with neck mobility due to age. Current Functional Impairments (Reported) Functional Limitations- ADL's Reading Looking over shoulders. 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 PT-OP-C Subjective Start: 07/30/18 16:03 Freq: Status: Active Protocol: Document 09/01/18 14:45 EA (Rec: 09/01/18 14:52 EA [id number]) OP-PT Subjective Patient Comments Patient Comments Pt reports no pain but very min discomfort and just feels tight; he mentioned that leaning and reading made stiffness increased; states he learned have frequent breaks to relax nexk while working. PT-OP-F Manual Assessment Start: 07/30/18 16:03 Freq: Status: Active Protocol: Document 08/03/18 09:08 LRN (Rec: 08/03/18 10:22 LRN [id number]) Manual Assessments Soft Tissue Assessment Soft Tissue Mobility Assessment Increased muscle tone in the R cervical paraspinals and upper shoulder muscles. Pain with palpation and tightness at the R suboccipital region. Joint Mobility Assessment Joint Mobility Assessment Decreased C6, C7 mobility for L rotation and C1 on C2 for L rotation (stuck in R rotation) . PT-OP-H Neuro Start: 07/30/18 16:03 Freq: Status: Active Protocol: Document 08/03/18 09:08 LRN (Rec: 08/03/18 10:22 LRN [id number]) Sensation Evaluation Gross Sensation Gross Sensation WNL Deep Tendon Reflex & Clonus Assessment Deep Tendon Reflex Bilateral Patellar Deep Tendon Reflex 2+ Normal Bilateral Brachioradialis Deep Tendon Reflex 1+ Diminished Bilateral Tricep Deep Tendon Reflex 0 Absent Bilateral Bicep Deep Tendon Reflex 0 Absent PT-OP-J Posture/Palpation/Skin Start: 07/30/18 16:03 Freq: Status: Active Protocol: Document 08/03/18 09:08 LRN (Rec: 08/03/18 10:22 LRN [id number]) Posture Evaluation Comments Posture Comments Straightened Cervical and Upper Thoracic spine. Level head. Palpation Assessment Location Neck Palpation Findings Soft Tissue Tightness Palpation Details Tightness of L Cervical paraspinals and Upper Trapezius. PT-OP-K Range of Motion Start: 07/30/18 16:03 Freq: Status: Active Protocol: Document 08/17/18 10:30 GGD (Rec: 08/17/18 14:46 GGD [id number]) Cervical Spine Range of Motion Cervical Spine Active Degrees Testing Position Sitting Flexion 45 Extension 45 Rotation Left 52 Rotation Right 45 Lateral Flexion Left 25 Lateral Flexion Right 20 PT-OP-L Special Tests Start: 07/30/18 16:03 Freq: Status: Active Protocol: Document 08/03/18 09:08 LRN (Rec: 08/03/18 10:22 LRN [id number]) Special Tests Cervical Spine Special Tests Vertebral Artery Test Results Negative bilaterally Traction Test Results Positive for improved cervical mobility. Foraminal Compression Test Results Negative PT-OP-Q Treatments Start: 07/30/18 16:03 Freq: Status: Active Protocol: Document 09/01/18 14:45 EA (Rec: 09/01/18 14:52 EA [id number]) Therapeutic Exercises Supine Exercises 3 Supine Exercise Name Scalenes, SF,flexors, rotator stretch Reps/Minutes x 15SH x 2 reps 2 Supine Exercise Name AROM: cervical F/SF/Rot Reps/Minutes x 12 reps 1 Supine Exercise Name UT str. Reps/Minutes 2 Comments manual Sitting Exercises Seated UT stretch Side bilateral Reps/Minutes 30 x 2 each Active extension Sitting Exercise Name Chin tuck with neck extension, hands behind neck for support Reps/Minutes 15x Cervical stretch Sitting Exercise Name Rotation, SB, Chin tuck- extension Side bilateral Manual Therapy Treatment Soft Tissue Mobilization 1 Body Location UT, lev. scap and S/C paraspinals Mobilization Type Myofascial Release Rolling Intensity/Depth Moderate Comments Passive manual stretching Cervical SB and rotation B PT-OP-R Modalities Start: 07/30/18 16:03 Freq: Status: Active Protocol: Document 09/01/18 14:45 EA (Rec: 09/01/18 14:52 EA [id number]) Hot Pack/Cold Pack Treatment Hot Pack Location cervical region Treatment Duration (minutes) 10 PT-OP-T Assessment and Plan Start: 07/30/18 16:03 Freq: Status: Active Protocol: Document 09/01/18 14:45 EA (Rec: 09/01/18 14:52 EA [id number]) Physical Therapy Assessment Assessment Summary Assessment Quick assessment performed in supine and reveals normal AROM in all planes with negative to facets, nerve root compression test. Patient advised to be seen after 2 weeks and possible discharge fitness exercises focusing on the form to prevent symptoms recurrence. Physical Therapy Plan Next Visit Focus/Plan Next Note Type Treatment Note Next Visit Plan Possible discharge to exercises technique and form ( squat)
--- NOTE | 2018-09-14 16:45 | PT.OTN ---
Current Diagnoses Cervicalgia (09/14/18) Physical Therapy Treatment Note PT-OP-A Visit Information Start: 07/30/18 16:03 Freq: Status: Active Protocol: Document 09/14/18 16:03 EA (Rec: 09/14/18 16:43 EA [id number]) Out-Patient Physical Therapy Visit Information Visit Information Visit Type Treatment Note Visit Start Time 13:45 Visit Stop Time 14:38 Total Visit Minutes 38 Visit Number 7 PT-OP-B Current Condition Start: 07/30/18 16:03 Freq: Status: Active Protocol: Document 08/03/18 09:08 LRN (Rec: 08/03/18 10:22 LRN [id number]) Current Condition History of Current Condition Onset Date 06/2018 Current Complaints Neck pain with returning to neutral after looking down and looking around History of Current Condition Pt reports insidious onset of neck pain over 3 days. He states he joined a gym and was doing squats keeping back straight and neck up and thinks maybe that is the reason for his onset of neck pain. Th morning did a class and that evening the neck was sore and by the next night he was having trouble sleeping and couldn't get comfortable. The following day he couldn't sleep at all because the pain was so severe . He went to ER at [facility] and CAT scan showed arthritis. He denies any tingling, numbness in the upper extremities. He was told by his physician that it was probably a pinched nerve. He took Oxycodone for 2-3 days, then muscle relaxors for 1 week and he started to get better. He reports just coming back from a 4 day ski trip with no noticeable challenges due to his neck. He still hurts if looking down over a prolonged period of time with pain on return to neutral. Can sleep at nights and is taking IBP in the morning. He is also taking CBD oil and reports he is 90% better. Prior Treatments and Tests CAT scan at [facility] Emergency Department. Treatment Goals Patient/Caregiver Goals Pt goal is improve ability to read for longer time and to look around without moving body. Pt goal is to be 100% better. Prior Functional Status Baseline Function- ADL's Independent Baseline Function- Mobility Independent Baseline Function- Other Limited with neck mobility due to age. Current Functional Impairments (Reported) Functional Limitations- ADL's Reading Looking over shoulders. 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 PT-OP-C Subjective Start: 07/30/18 16:03 Freq: Status: Active Protocol: Document 09/14/18 16:03 EA (Rec: 09/14/18 16:43 EA [id number]) OP-PT Subjective Patient Comments Patient Comments Pt reports just minimal discomfort towards left rotation; states his much more improved at this time. PT-OP-F Manual Assessment Start: 07/30/18 16:03 Freq: Status: Active Protocol: Document 08/03/18 09:08 LRN (Rec: 08/03/18 10:22 LRN [id number]) Manual Assessments Soft Tissue Assessment Soft Tissue Mobility Assessment Increased muscle tone in the R cervical paraspinals and upper shoulder muscles. Pain with palpation and tightness at the R suboccipital region. Joint Mobility Assessment Joint Mobility Assessment Decreased C6, C7 mobility for L rotation and C1 on C2 for L rotation (stuck in R rotation) . PT-OP-H Neuro Start: 07/30/18 16:03 Freq: Status: Active Protocol: Document 08/03/18 09:08 LRN (Rec: 08/03/18 10:22 LRN [id number]) Sensation Evaluation Gross Sensation Gross Sensation WNL Deep Tendon Reflex & Clonus Assessment Deep Tendon Reflex Bilateral Patellar Deep Tendon Reflex 2+ Normal Bilateral Brachioradialis Deep Tendon Reflex 1+ Diminished Bilateral Tricep Deep Tendon Reflex 0 Absent Bilateral Bicep Deep Tendon Reflex 0 Absent PT-OP-J Posture/Palpation/Skin Start: 07/30/18 16:03 Freq: Status: Active Protocol: Document 08/03/18 09:08 LRN (Rec: 08/03/18 10:22 LRN [id number]) Posture Evaluation Comments Posture Comments Straightened Cervical and Upper Thoracic spine. Level head. Palpation Assessment Location Neck Palpation Findings Soft Tissue Tightness Palpation Details Tightness of L Cervical paraspinals and Upper Trapezius. PT-OP-K Range of Motion Start: 07/30/18 16:03 Freq: Status: Active Protocol: Document 08/17/18 10:30 GGD (Rec: 08/17/18 14:46 GGD [id number]) Cervical Spine Range of Motion Cervical Spine Active Degrees Testing Position Sitting Flexion 45 Extension 45 Rotation Left 52 Rotation Right 45 Lateral Flexion Left 25 Lateral Flexion Right 20 PT-OP-L Special Tests Start: 07/30/18 16:03 Freq: Status: Active Protocol: Document 08/03/18 09:08 LRN (Rec: 08/03/18 10:22 LRN [id number]) Special Tests Cervical Spine Special Tests Vertebral Artery Test Results Negative bilaterally Traction Test Results Positive for improved cervical mobility. Foraminal Compression Test Results Negative PT-OP-Q Treatments Start: 07/30/18 16:03 Freq: Status: Active Protocol: Document 09/14/18 16:03 EA (Rec: 09/14/18 16:43 EA [id number]) Therapeutic Exercises Supine Exercises 3 Supine Exercise Name Scalenes, SF,flexors, rotator stretch Reps/Minutes x 15SH x 2 reps Comments HEP comp 2 Supine Exercise Name AROM: cervical F/SF/Rot Reps/Minutes x 12 reps 1 Supine Exercise Name UT str. Reps/Minutes 2 Comments HEP comp Sitting Exercises Seated UT stretch Side bilateral Reps/Minutes 30 x 2 each Comments HEP comp Active extension Sitting Exercise Name Chin tuck with neck extension, hands behind neck for support Reps/Minutes 15x Comments HEP comp Standing Exercises 1 Standing Exercise Name Wall posture: shoulder exercises Reps/Minutes x 3 mins Comments HEP comp Scapular Rows Side bilateral Equipment Used LV 2 TB Reps/Minutes 15 x 2 Comments HEP comp Manual Therapy Treatment Soft Tissue Mobilization 1 Body Location UT, lev. scap and S/C paraspinals Mobilization Type Myofascial Release Rolling Intensity/Depth Moderate Comments Passive manual stretching Cervical SB and rotation B Self-Care/Home Management Treatment Education Patient Education Home Exercise Program Pain Management Posture Safety Caregiver Education Discussed coming back to squat fitness exercises right form and execution. PT-OP-R Modalities Start: 07/30/18 16:03 Freq: Status: Active Protocol: Document 09/01/18 14:45 EA (Rec: 09/01/18 14:52 EA [id number]) Hot Pack/Cold Pack Treatment Hot Pack Location cervical region Treatment Duration (minutes) 10 PT-OP-T Assessment and Plan Start: 07/30/18 16:03 Freq: Status: Active Protocol: Document 09/14/18 16:03 EA (Rec: 09/14/18 16:43 EA [id number]) Physical Therapy Assessment Assessment Summary Assessment Patient is discharge to [facility]; no discomfort noted during therex except with very mild left rotation stretch. Physical Therapy Plan Discharge Physical Therapy Discharge Reasons Goals Met Discharge Comments Patient request
== END 2018-09-27 11:25 | disposition home or self-care (01) ==
LOC: PHYS 13:00
PROVIDERS: Family Provider Internal Medicine; PCP Internal Medicine; Visit Provider Internal Medicine
DX: M54.2 Cervicalgia (principal)
CPT/HCPCS: 97010; 97110; 97140; 97161; 97535

== ENCOUNTER → 2018-09-27 06:58 | Outpatient (CLI) | payer OTHER, SELFPAY ==
[2018-09-27 08:49] LABS: Alanine Aminotransferase 49 IU/L (21-72); Albumin 4.3 g/dL (3.5-5.0); Albumin Globulin Ratio 1.7 (1.0-2.8); Alkaline Phosphatase 56 U/L (38-126); Aspartate Aminotransferase 48 IU/L (17-59); Bilirubin Total 0.3 mg/dL (0.2-1.3); Blood Urea Nitrogen 22 mg/dL (9-20); Calcium 9.4 mg/dL (8.4-10.2); Carbon Dioxide 29 mmol/L (22-32); Chloride 102 mmol/L (98-107); Estimated Glomerular Filt Rate > 60.0 mL/min (>60); Globulin 2.5 g/dL (1.7-4.1); Glucose 92 mg/dL (80-110); HEMOLYSIS < 15 (0-50); Potassium 5.1 mmol/L (3.4-5.1); Sodium 139 mmol/L (137-145); Total Protein 6.8 g/dL (6.3-8.2)
[2018-09-29 13:55] LABS: Lipoprofile NMR SEE SEPERATE REPORT
[2018-09-30 16:16] LABS: HSV 2 IGG AB 8.09 index (< 0.90); HSV1IGG 1.59 index (< 0.90)
== END ==
PROVIDERS: Family Provider Internal Medicine; PCP Internal Medicine; Visit Provider Specialist
DX: I25.10 Atherosclerotic heart disease of native coronary artery without angina pectoris (principal); E78.2 Mixed hyperlipidemia; R21 Rash and other nonspecific skin eruption
CPT/HCPCS: 36415; 80053; 83704; 86695; 86696

== ENCOUNTER → 2019-01-11 06:54 | Outpatient (CLI) | payer OTHER, SELFPAY ==
[2019-01-11 08:19] LABS: Alanine Aminotransferase 45 IU/L (21-72); Albumin 4.4 g/dL (3.5-5.0); Albumin Globulin Ratio 1.5 (1.0-2.8); Alkaline Phosphatase 56 U/L (38-126); Aspartate Aminotransferase 60 IU/L (17-59); Bilirubin Total 0.6 mg/dL (0.2-1.3); Blood Urea Nitrogen 30 mg/dL (9-20); Calcium 9.7 mg/dL (8.4-10.2); Carbon Dioxide 26 mmol/L (22-32); Chloride 105 mmol/L (98-107); Cholesterol 150 mg/dL (140-199); Estimated Glomerular Filt Rate > 60.0 mL/min (>60); Globulin 2.9 g/dL (1.7-4.1); Glucose 88 mg/dL (80-110); HDL Cholesterol 84 mg/dL (40-60); HEMOLYSIS < 15 (0-50); LDL Cholesterol Calculated 56 mg/dL (<100); Potassium 4.6 mmol/L (3.4-5.1); Sodium 141 mmol/L (137-145); Total Protein 7.3 g/dL (6.3-8.2); Triglycerides 49 mg/dL (35-150)
[2019-01-11 08:46] LABS: Prostate Specific Antigen 2.33 ng/mL (0.10-4.00)
== END ==
PROVIDERS: PCP Internal Medicine; Visit Provider Internal Medicine
DX: E78.5 Hyperlipidemia, unspecified (principal); I25.10 Atherosclerotic heart disease of native coronary artery without angina pectoris; R97.20 Elevated prostate specific antigen [PSA]
CPT/HCPCS: 36415; 80053; 80061; 84153

== ENCOUNTER → 2019-02-01 11:11 | Outpatient (CLI) | payer OTHER, SELFPAY ==
--- NOTE | 2019-02-01 11:12 | DI.MRI.S_ITS ---
PROCEDURE: MR CERVICAL SPINE WO CON INDICATIONS: neck pain/ l cervical radiucopathy TECHNIQUE: Noncontrast sagittal T1 spin echo and T2 fast spin echo, sagittal STIR, foraminal oblique sagittal T2 fast spin echo, and axial gradient echo or T2 fast spin echo through the cervical spine. COMPARISON: None. FINDINGS: Image quality: Excellent. Alignment and Curvature: There is loss of normal cervical lordosis. There is mild kyphosis at C4-C6. Mild grade 1 retrolisthesis of C5 on C6 and C6 on C7. Mild grade 1 anterolisthesis of C4 on C5. Mild grade 1 retrolisthesis of C3 on C4. Bone Marrow: Marrow demonstrates normal overall signal. Moderate reactive signal within the endplates adjacent to the C5-C6 and C6-C7 intervertebral discs. Mild reactive signal within the endplates adjacent to the C3-C4 and C4-C5 intervertebral discs. Spinal Cord: Visualized spinal cord has normal size and signal. No cerebellar tonsillar herniation. Paraspinous Soft Tissues: No paravertebral masses. Prevertebral soft tissues are normal in thickness. C2-C3: Congenital canal stenosis. Moderate disc height loss and desiccation. Mild diffuse disc bulge with superimposed central broad-based protrusion. Moderate canal stenosis. Severe right and mild left foraminal stenosis. Right C3 nerve root compression. C3-C4: Congenital canal stenosis. Severe disc height loss and desiccation. Moderate diffuse disc bulge with superimposed broad-based central protrusion. Moderate facet and uncovertebral hypertrophy bilaterally. Severe canal stenosis. Moderate cord flattening. Severe bilateral foraminal stenosis. Bilateral C4 nerve root compression. C4-C5: Moderate disc height loss and desiccation. Mild diffuse disc bulge with superimposed left paracentral protrusion. Congenital canal stenosis. Mild facet and uncovertebral hypertrophy bilaterally. Severe canal stenosis. Moderate left cord flattening. Moderate foraminal stenosis bilaterally. C5-C6: Congenital canal stenosis. Severe disc height loss and desiccation. Moderate diffuse disc bulge with superimposed broad-based central protrusion. Bilateral facet and uncovertebral hypertrophy. Severe canal stenosis. Moderate cord flattening. Severe left and moderate right foraminal stenosis. Left C6 nerve root compression. C6-C7: Moderate to severe disc height loss and desiccation. Moderate diffuse disc bulge with superimposed broad-based central protrusion. Congenital canal stenosis. Moderate facet and uncovertebral hypertrophy bilaterally. Severe canal stenosis. Severe cord flattening. Severe bilateral foraminal stenosis with bilateral C7 nerve root compression. C7-T1: Congenital canal stenosis. Moderate disc height loss and desiccation. Mild diffuse disc bulge. Moderate facet and uncovertebral hypertrophy bilaterally. Moderate canal stenosis. Moderate left and mild right foraminal stenosis. IMPRESSION: 1. Diffuse congenital canal stenosis, with superimposed disc and facet disease, as well as uncovertebral hypertrophy. 2. Multilevel canal stenoses, worst at C3-C4, C4-C5, C5-C6, and C6-C7, where there is cord flattening present. 3. Multilevel foraminal stenoses, worst at C2-C3, C3-C4, C5-C6, and C6-C7 where there is intraforaminal nerve root compression. Recommend correlation with clinical symptoms to ascertain relevance of these findings. Dictated by: Yesika Wynn M.D. on 02/01/2019 at 16:37 Approved by: Yesika Wynn M.D. on 02/01/2019 at 16:44
== END ==
PROVIDERS: PCP Internal Medicine; Visit Provider Internal Medicine
DX: M50.11 Cervical disc disorder with radiculopathy, high cervical region (principal); M48.02 Spinal stenosis, cervical region
CPT/HCPCS: 72141

== ENCOUNTER → 2019-06-21 16:53 | Outpatient (CLI) | payer OTHER, SELFPAY ==
--- NOTE | 2019-06-21 16:55 | DI.RAD.S_ITS ---
PROCEDURE: XR CHEST 2V INDICATIONS: cough TECHNIQUE: 2 views of the chest were acquired. COMPARISON: [facility], , CHEST 2 VIEW, 11/10/2011, 12:15. FINDINGS: Surgical changes and devices: None. Lungs and pleura: Lungs are clear. No pleural effusions or pneumothorax. Mediastinum: Mediastinal contours are normal. Heart size is normal. Bones and chest wall: No suspicious bony abnormalities. Soft tissues appear unremarkable. IMPRESSION: Normal for age, source of current cough symptoms is not seen. Dictated by: Manuel Canela M.D. on 06/22/2019 at 9:15 Approved by: Manuel Canela M.D. on 06/22/2019 at 9:15
[2019-06-21 18:09] LABS: Add Manual Diff / Slide Review NO; Basophils Absolute Auto 0 /uL (0-100); Basophils Percent Auto 0.4 % (0-2); Eosinophils Absolute Auto 100 /uL (0-450); Eosinophils Percent Auto 2.1 % (2-4); Hematocrit 40.8 % (41-53); Hemoglobin 13.8 g/dL (13.5-17.5); Lymphocytes Absolute Auto 1500 /uL (1100-4500); Lymphocytes Percent Auto 24.5 % (25-40); Mean Corpuscular HGB Conc 33.9 % (30-36); Mean Corpuscular Hemoglobin 32.3 PG (26-34); Mean Corpuscular Volume 95.2 fL (80-100); Monocytes Absolute Auto 400 /uL (0-900); Monocytes Percent Auto 6.9 % (3-14); Neutrophils Absolute Auto 4000 /uL (1500-7000); Neutrophils Percent Auto 66.1 % (50-75); Platelet Count 203 X10^3/uL (150-400); Red Blood Cell Count 4.28 X10^6/uL (4.5-5.9); Red Cell Distribution Width 12.9 % (11.6-14.8)
[2019-06-21 18:25] LABS: D Dimer 5001 ng/mL (<230)
[2019-06-21 18:32] LABS: Alanine Aminotransferase 27 IU/L (<50); Albumin 4.3 g/dL (3.5-5.0); Albumin Globulin Ratio 1.3 (1.0-2.8); Alkaline Phosphatase 79 U/L (38-126); Aspartate Aminotransferase 29 IU/L (17-59); BUN Creatinine Ratio 24.4 (6-22); Bilirubin Total 0.3 mg/dL (0.2-1.3); Blood Urea Nitrogen 22 mg/dL (9-20); Calcium 9.5 mg/dL (8.4-10.2); Carbon Dioxide 29 mmol/L (22-32); Chloride 101 mmol/L (98-107); Estimated Glomerular Filt Rate > 60.0 mL/min (>60); Globulin 3.3 g/dL (1.7-4.1); Glucose 95 mg/dL (80-110); HEMOLYSIS < 15 (0-50); Potassium 4.1 mmol/L (3.4-5.1); Sodium 139 mmol/L (137-145); Total Protein 7.6 g/dL (6.3-8.2)
== END ==
PROVIDERS: PCP Internal Medicine; Visit Provider Internal Medicine
DX: R05 Cough (principal); R06.00 Dyspnea, unspecified; R63.4 Abnormal weight loss
CPT/HCPCS: 36415; 71046; 80053; 85025; 85379

== ENCOUNTER → 2019-06-22 11:45 | Outpatient (CLI) | payer OTHER, SELFPAY ==
--- NOTE | 2019-06-22 12:13 | DI.CT.S_ITS ---
PROCEDURE: CT ANGIO CHEST PE PROTOCOL INDICATIONS: possible pulmonary embolism, sudden onset SOB yesterday TECHNIQUE: After the administration of intravenous contrast, 2 mm thick sections acquired from the pulmonary apices to the posterior costophrenic angles. 3-dimensional maximum intensity projection (MIP) coronal and sagittal reformats were then acquired through the thorax. For radiation dose reduction, the following was used: automated exposure control, adjustment of mA and/or kV according to patient size. COMPARISON: [facility], CR, XR THORACIC SPINE 3V, 09/09/2018, 10:03. [facility], CR, XR CHEST 2V, 06/21/2019, 16:57. FINDINGS: Image quality: Excellent. Pulmonary arteries: Pulmonary arteries are normal in size, and demonstrate no intraluminal filling defects to suggest central pulmonary embolism. Lungs and pleura: Lungs are clear except for the incidental finding of a 8 x 10 mm nodule at the deep posterior right costophrenic sulcus, noncalcified. This abuts the pleural surface, does not show definite evidence of chest wall invasion, and is not associated with additional pulmonary nodules elsewhere. No pleural effusions or pneumothorax. Central and peripheral airways are patent. Mediastinum: Heart size is normal, without pericardial effusion. No mediastinal or hilar adenopathy. Thoracic aorta is normal in caliber and enhancement. Esophagus is normal in caliber, without hiatal hernia. Bones and chest wall: No suspicious bony lesions. Ribs and thoracic spine appear intact throughout. Thyroid gland appears normal where well seen. No axillary or supraclavicular adenopathy. Abdomen: Visualized upper abdominal solid organs appear normal in the early arterial phase of enhancement. Note is made of a left hepatic lobe water density cyst measuring 1.1 cm left hepatic lobe anteriorly near the liver dome. IMPRESSION: No pulmonary embolus seen. There is an incidental finding of an 8 x 10 mm pulmonary nodule at the pleural surface of the deep posterior costophrenic sulcus, potentially a primary or metastatic neoplasm. Nuclear medicine PET CT scanning could be utilized to assess for solitary pulmonary nodule workup. No comparison study allows visualization of this structure from the past. Dictated by: Manuel Canela M.D. on 06/22/2019 at 12:22 Approved by: Manuel Canela M.D. on 06/22/2019 at 12:34
== END ==
PROVIDERS: PCP Internal Medicine; Visit Provider Internal Medicine
DX: R06.02 Shortness of breath (principal); R91.1 Solitary pulmonary nodule; R05 Cough; R06.00 Dyspnea, unspecified; R63.4 Abnormal weight loss
CPT/HCPCS: 71275; Q9967

== ENCOUNTER → 2019-10-25 13:39 | Outpatient (CLI) | payer OTHER, SELFPAY ==
--- NOTE | 2019-10-25 | DI.RAD.S_ITS ---
PROCEDURE: XR CERVICAL SPINE 1V INDICATIONS: S/P CERVICAL FUSION TECHNIQUE: Single lateral view of the cervical spine acquired. COMPARISON: [facility], CR, XR CERVICAL SPINE 4V OR 5V, 09/09/2018, 10:03. FINDINGS: Bones: No fractures or dislocations to the C7 level. No suspicious bony lesions. Postsurgical change related to ACDF from C3-C7. Straightening of the normal lordotic curvature. Hardware appears intact. No evidence of loosening. Diffuse facet arthropathy. Mild C2-C3 and C7-T1 disc degeneration. Soft tissues: No prevertebral soft tissue swelling. IMPRESSION: Postsurgical and degenerative changes as above. Expected postoperative alignment Dictated by: Brandon Delgado M.D. on 10/25/2019 at 16:33 Approved by: Brandon Delgado M.D. on 10/25/2019 at 16:35
== END ==
PROVIDERS: PCP Internal Medicine; Referring Provider Neurological Surgery; Visit Provider Neurological Surgery
DX: M47.812 Spondylosis without myelopathy or radiculopathy, cervical region (principal); M50.33 Other cervical disc degeneration, cervicothoracic region; M50.31 Other cervical disc degeneration, high cervical region; Z98.1 Arthrodesis status
CPT/HCPCS: 72020

== ENCOUNTER → 2019-11-14 07:25 | Outpatient (CLI) | payer OTHER, MEDICARE, SELFPAY ==
--- NOTE | 2019-11-14 | DI.US.S_ITS ---
PROCEDURE: US CAROTID DOPPLER BI INDICATIONS: ATHEROSCLEROTIC HEART DISEASE OF [place] CORONARY TECHNIQUE: Color and pulse Doppler interrogation was performed of both carotid systems, with image documentation and velocity measurements. COMPARISON: None. FINDINGS: Stenosis calculations are based on SRU (Society of Radiologists in Ultrasound) criteria. Right side: Brachial blood pressure: 115/77 mm Hg. Common carotid artery peak systolic velocity: 94 cm/sec. Internal carotid artery peak systolic velocity: 110 cm/sec. Internal carotid artery end diastolic velocity: 38 cm/sec. External carotid artery peak systolic velocity: 78 cm/sec. ICA/CCA peak systolic ratio: 1.17. [place] scale imaging description: Moderate intimal medial thickening with scattered calcification of the common carotid artery. Focal calcific plaque in the carotid bulb extends into the external and internal carotid arteries causing mild to moderate subjective luminal stenosis of the internal carotid artery. There is broadening of the ICA spectral waveform without velocity elevation distal to the stenosis. Percent internal carotid artery stenosis: Close to 50% Vertebral artery: Flow direction is antegrade. Left side: Brachial blood pressure: 118/78 mm Hg. Common carotid artery peak systolic velocity: 90 cm/sec. Internal carotid artery peak systolic velocity: 90 cm/sec. Internal carotid artery end diastolic velocity: 38 cm/sec. External carotid artery peak systolic velocity: 65 cm/sec. ICA/CCA peak systolic ratio: 0.99. [place] scale imaging description: Moderate intimal medial thickening of the common carotid artery. Next calcified and noncalcified plaque in the carotid bulb without causing significant luminal stenosis. Percent internal carotid artery stenosis: Less than 50%. Vertebral artery: Flow direction is antegrade. IMPRESSION: 1. No hemodynamically significant stenosis in either carotid system. 2. Moderate intimal medial thickening of the common carotid arteries bilaterally. 3. Calcification of the right carotid bulb resulting in an internal carotid artery origin stenosis estimated to be less than, but close to 50% 4. Antegrade vertebral artery flow bilaterally. Dictated by: Freda Napier M.D. on 11/14/2019 at 8:31 Approved by: Freda Napier M.D. on 11/14/2019 at 8:36
--- NOTE | 2019-11-14 07:30 | DI.CT.S_ITS ---
PROCEDURE: CT CHEST W CON INDICATIONS: follow up pulmonary nodule TECHNIQUE: After the administration of intravenous contrast, 5 mm thick sections acquired from the pulmonary apices to the posterior costophrenic angles. 1 mm axial lung, 5 mm thick coronal and sagittal reformats and 7 mm axial MIP were acquired. For radiation dose reduction, the following was used: automated exposure control, adjustment of mA and/or kV according to patient size. COMPARISON: [facility], CT, CT ANGIO CHEST PE PROTOCOL, 06/22/2019, 11:49. [facility], [place], NM PET CT FUSION SKULL 2 THIGH, 07/06/2019, 15:43. FINDINGS: Image quality: Excellent. Lungs and pleura: There is a 7 x 9 mm nodule in right lower lobe, unchanged in size. No acute air space opacities. No pleural effusions or pneumothorax. Central and peripheral airways are patent and normal in caliber. Mediastinum: Heart size is normal. No pericardial effusion. Moderate coronary artery calcifications. No mediastinal or hilar adenopathy by size criteria. Thoracic aorta and central pulmonary arteries are normal in size. Esophagus is normal in caliber. Tiny hiatal hernia. Bones and chest wall: No suspicious bony lesions. No vertebral body compression fractures. No axillary or supraclavicular adenopathy by size criteria. Thyroid gland is normal. Abdomen: Visualized upper abdominal solid organs appear normal. Upper abdominal bowel loops are normal in caliber. There is a 5.5 x 4.7 cm simple appearing cyst in the superior pole of the left kidney. IMPRESSION: 1. Stable 7 x 9 mm nodule in the right lower lobe. Please see in close followup recommendation. Fleischner Society criteria for SOLID lung nodule followup. Nodule size (mm)Low-risk patientHigh-risk patient?4No follow-up neededFollow-up at 12 mo; if no change, no further follow-up>3-9Bpqeso-so CT at 12 mo; if no change, no further follow-up needed.Initial follow-up CT at 6-12 mo, then 18-24 mo if no change. >6-8Initial follow-up CT at 6-12 mo, then 18-24 mo if no change. Initial follow-up CT at 3-6 mo, then 9-12 mo and 24 mo if no change. >8Follow-up CT at 3, 9, 24 mo. Or PET and/or biopsy.Same as for low-risk pts. Dictated by: Nelly Hilton M.D. on 11/14/2019 at 8:47 Approved by: Nelly Hilton M.D. on 11/14/2019 at 8:54
[2019-11-14 09:20] LABS: Alanine Aminotransferase 38 IU/L (<50); Albumin Globulin Ratio 1.5 (1.0-2.8); Alkaline Phosphatase 57 U/L (38-126); Aspartate Aminotransferase 53 IU/L (17-59); BUN Creatinine Ratio 32.9 (6-22); Bilirubin Total 0.4 mg/dL (0.2-1.3); Blood Urea Nitrogen 28 mg/dL (9-20); Calcium 9.5 mg/dL (8.4-10.2); Carbon Dioxide 28 mmol/L (22-32); Chloride 106 mmol/L (98-107); Estimated Glomerular Filt Rate > 60.0 mL/min (>60); Globulin 2.6 g/dL (1.7-4.1); Glucose 98 mg/dL (80-110); HEMOLYSIS < 15 (0-50); Potassium 5.1 mmol/L (3.4-5.1); Sodium 139 mmol/L (137-145); Total Protein 6.6 g/dL (6.3-8.2)
[2019-11-16 07:41] LABS: Cholesterol, Total 168 mg/dL (100-199); HDL-Cholesterol 70 mg/dL (>39); HDL-Particle (Total) 43.6 umol/L (>=30.5); Historical Reading Comment: (.); LDL Particle 566 nmol/L (<1000); LDL Size 20.3 nm (>20.5); LDL-Cholsterol 79 mg/dL (0-99); LP-IR Score 39 (<=45); Small LDL- Particle 237 nmol/L (<=527); Triglycerides 97 mg/dL (0-149)
== END ==
PROVIDERS: Specialist; PCP Internal Medicine; Referring Provider Internal Medicine; Visit Provider Internal Medicine
DX: R91.1 Solitary pulmonary nodule (principal); N28.1 Cyst of kidney, acquired; I25.10 Atherosclerotic heart disease of native coronary artery without angina pectoris; E78.2 Mixed hyperlipidemia
CPT/HCPCS: 36415; 71260; 80053; 80061; 83704; 93880

== ENCOUNTER → 2019-11-21 15:22 | Outpatient (CLI) | payer OTHER, MEDICARE, SELFPAY ==
[2019-11-23 00:17] LABS: COVID19 Sendout Not Detected (Not Detect)
== END ==
PROVIDERS: PCP Internal Medicine; Visit Provider Nurse Practitioner
DX: Z01.812 Encounter for preprocedural laboratory examination (principal)
CPT/HCPCS: 87635

== ENCOUNTER → 2020-02-01 07:04 | Outpatient (CLI) | payer MEDICARE, OTHER, SELFPAY ==
[2020-02-01 09:21] LABS: Prostate Specific Antigen Scrn 2.14 ng/mL (0.1-4.0)
== END ==
PROVIDERS: PCP Internal Medicine; Referring Provider Internal Medicine; Visit Provider Internal Medicine
DX: Z12.5 Encounter for screening for malignant neoplasm of prostate (principal)
CPT/HCPCS: 36415; G0103

== ENCOUNTER → 2020-04-11 07:32 | Outpatient (CLI) | payer MEDICARE, OTHER, SELFPAY ==
--- NOTE | 2020-04-11 | DI.RAD.S_ITS ---
PROCEDURE: XR CERVICAL SPINE 4V OR 5V INDICATIONS: Spinal stenosis, cervical region TECHNIQUE: 5 views of the cervical spine were acquired to include neutral flexion and extension imaging. COMPARISON: [facility], CR, XR CERVICAL SPINE 1V, 10/25/2019, 13:35. [facility], CR, XR CERVICAL SPINE 4V OR 5V, 09/09/2018, 10:03. FINDINGS: Bones: No fractures or dislocations to the T1 level. No suspicious bony lesions. There is expected reduced range of postoperative motion between flexion and extension, with preserved normal bony alignment. The patient has undergone anterior fusion plating and interbody disc spacer placement from C3 through C7 Soft tissues: Prevertebral soft tissues are normal in thickness. IMPRESSION: Prior C3 through C7 fusion procedure, interbody disc spacer devices are present showing no evidence of displacement with reference to the postoperative image from 10/18 11/18. No device loosening or disruption is suspected. Normal alignment established. Dictated by: Manuel Canela M.D. on 04/11/2020 at 8:44 Approved by: Manuel Canela M.D. on 04/11/2020 at 8:46
== END ==
PROVIDERS: PCP Internal Medicine; Referring Provider Neurological Surgery; Visit Provider Neurological Surgery
DX: M48.02 Spinal stenosis, cervical region (principal); Z98.1 Arthrodesis status
CPT/HCPCS: 72050

== ENCOUNTER → 2020-06-22 13:39 | Outpatient (CLI) | payer MEDICARE, OTHER, SELFPAY ==
[2020-06-22] MEDS: COVID-19 VACC #1, MRNA(MOD) 100 MCG/0.5 ML VIAL IM (13:48)
== END ==
PROVIDERS: PCP Internal Medicine; Visit Provider Internal Medicine
DX: Z23 Encounter for immunization (principal)
CPT/HCPCS: 0011A; 91301

== ENCOUNTER → 2020-07-20 14:37 | Outpatient (CLI) | payer MEDICARE, OTHER, SELFPAY ==
[2020-07-20] MEDS: COVID-19 VACC #2, MRNA(MOD) 100 MCG/0.5 ML VIAL IM (14:45)
== END ==
PROVIDERS: PCP Internal Medicine; Visit Provider Internal Medicine
DX: Z23 Encounter for immunization (principal)
CPT/HCPCS: 0012A; 91301

== ENCOUNTER → 2021-01-28 07:03 | Outpatient (CLI) | payer MEDICARE, OTHER, SELFPAY ==
[2021-01-28 09:01] LABS: Alanine Aminotransferase 42 IU/L (<50); Albumin 4.1 g/dL (3.5-5.0); Albumin Globulin Ratio 1.6 (1.0-2.8); Alkaline Phosphatase 53 U/L (38-126); Aspartate Aminotransferase 53 IU/L (17-59); BUN Creatinine Ratio 27.6 (6-22); Bilirubin Total 0.4 mg/dL (0.2-1.3); Blood Urea Nitrogen 24 mg/dL (9-20); Calcium 9.5 mg/dL (8.4-10.2); Carbon Dioxide 30 mmol/L (22-32); Chloride 104 mmol/L (98-107); Cholesterol 161 mg/dL (140-199); Estimated Glomerular Filt Rate > 60.0 mL/min (>60); Globulin 2.6 g/dL (1.7-4.1); Glucose 86 mg/dL (80-110); HDL Cholesterol 89 mg/dL (40-60); HEMOLYSIS < 15 (0-50); LDL Cholesterol Calculated 59 mg/dL (<100); Potassium 4.8 mmol/L (3.4-5.1); Sodium 138 mmol/L (137-145); Total Protein 6.7 g/dL (6.3-8.2); Triglycerides 67 mg/dL (35-150)
[2021-01-28 09:30] LABS: Prostate Specific Antigen 2.14 ng/mL (0.10-4.00)
== END ==
PROVIDERS: PCP Internal Medicine; Referring Provider Internal Medicine; Visit Provider Internal Medicine
DX: E78.2 Mixed hyperlipidemia (principal); I25.10 Atherosclerotic heart disease of native coronary artery without angina pectoris; R97.20 Elevated prostate specific antigen [PSA]
CPT/HCPCS: 36415; 80053; 80061; 84153

== ENCOUNTER → 2021-02-20 07:39 | Outpatient (CLI) | payer MEDICARE, OTHER, SELFPAY ==
[2021-02-20 09:08] LABS: Alanine Aminotransferase 37 IU/L (<50); Albumin 4.1 g/dL (3.5-5.0); Albumin Globulin Ratio 1.6 (1.0-2.8); Alkaline Phosphatase 56 U/L (38-126); Aspartate Aminotransferase 45 IU/L (17-59); BUN Creatinine Ratio 23.3 (6-22); Bilirubin Total 0.5 mg/dL (0.2-1.3); Blood Urea Nitrogen 20 mg/dL (9-20); Calcium 9.5 mg/dL (8.4-10.2); Carbon Dioxide 32 mmol/L (22-32); Chloride 103 mmol/L (98-107); Estimated Glomerular Filt Rate > 60.0 mL/min (>60); Globulin 2.6 g/dL (1.7-4.1); Glucose 93 mg/dL (80-110); HEMOLYSIS < 15 (0-50); Potassium 4.7 mmol/L (3.4-5.1); Sodium 138 mmol/L (137-145); Total Protein 6.7 g/dL (6.3-8.2)
[2021-02-22 11:15] LABS: Cholesterol, Total 150 mg/dL (100-199); HDL-Cholesterol 77 mg/dL (>39); HDL-Particle (Total) 45.6 umol/L (>=30.5); LDL Particle 412 nmol/L (<1000); LDL-Cholsterol 59 mg/dL (0-99); LP-IR Score 34 (<=45); Small LDL- Particle 165 nmol/L (<=527); Triglycerides 69 mg/dL (0-149)
== END ==
PROVIDERS: PCP Internal Medicine; Referring Provider Specialist; Visit Provider Specialist
DX: E78.00 Pure hypercholesterolemia, unspecified (principal)
CPT/HCPCS: 36415; 80053; 80061; 83704

== ENCOUNTER → 2023-01-20 07:09 | Outpatient (CLI) | payer MEDICARE, OTHER, SELFPAY ==
[2023-01-20 08:53] LABS: Add Manual Diff / Slide Review NO; Basophils Absolute Auto 0 /uL (0-100); Basophils Percent Auto 0.5 % (0-2); Eosinophils Absolute Auto 200 /uL (0-450); Eosinophils Percent Auto 4.4 % (2-4); Hematocrit 41.3 % (41-53); Hemoglobin 14.1 g/dL (13.5-17.5); Lymphocytes Absolute Auto 1100 /uL (1100-4500); Lymphocytes Percent Auto 21.5 % (25-40); Mean Corpuscular HGB Conc 34.2 % (30-36); Mean Corpuscular Hemoglobin 33.4 PG (26-34); Mean Corpuscular Volume 97.7 fL (80-100); Monocytes Absolute Auto 300 /uL (0-900); Neutrophils Absolute Auto 3300 /uL (1500-7000); Neutrophils Percent Auto 66.6 % (50-75); Platelet Count 221 X10^3/uL (150-400); Red Blood Cell Count 4.23 X10^6/uL (4.5-5.9); Red Cell Distribution Width 13.6 % (11.6-14.8)
[2023-01-20 09:15] LABS: Alanine Aminotransferase 58 IU/L (<50); Albumin 4.2 g/dL (3.5-5.0); Albumin Globulin Ratio 1.4 (1.0-2.8); Alkaline Phosphatase 52 U/L (38-126); Aspartate Aminotransferase 65 IU/L (17-59); BUN Creatinine Ratio 20.9 (6-22); Bilirubin Total 0.4 mg/dL (0.2-1.3); Blood Urea Nitrogen 18 mg/dL (9-20); C-Reactive Protein Quant < 0.5 mg/dL (<1.0); Calcium 9.2 mg/dL (8.4-10.2); Carbon Dioxide 30 mmol/L (22-32); Chloride 104 mmol/L (98-107); Estimated Glomerular Filt Rate > 60 mL/min (>60); Glucose 98 mg/dL (80-110); HEMOLYSIS < 15 (0-50); Potassium 5.3 mmol/L (3.4-5.1); Sodium 140 mmol/L (137-145); Total Protein 7.2 g/dL (6.3-8.2)
[2023-01-20 09:26] LABS: Erythrocyte Sedimentation Rate 8 MM/HR (0-15)
[2023-01-20 09:37] LABS: TSH w/ Reflex to FT4 1.55 uIU/mL (0.47-4.68)
[2023-01-22 12:25] LABS: Cholesterol, Total 160 mg/dL (100-199); HDL-Cholesterol 99 mg/dL (>39); HDL-Particle (Total) 50.3 umol/L (>=30.5); LDL Particle <300 nmol/L (<1000); LDL-Cholsterol 50 mg/dL (0-99); LP-IR Score <25 (<=45); Small LDL- Particle <90 nmol/L (<=527); Triglycerides 50 mg/dL (0-149)
== END ==
PROVIDERS: PCP Internal Medicine; Referring Provider Specialist; Visit Provider Specialist
DX: E78.00 Pure hypercholesterolemia, unspecified (principal); E78.2 Mixed hyperlipidemia; E05.90 Thyrotoxicosis, unspecified without thyrotoxic crisis or storm; I25.10 Atherosclerotic heart disease of native coronary artery without angina pectoris; R63.4 Abnormal weight loss
CPT/HCPCS: 36415; 80053; 80061; 83704; 84443; 85025; 85651; 86140

== ENCOUNTER → 2023-01-28 11:36 | Outpatient (CLI) | payer MEDICARE, OTHER, SELFPAY ==
--- NOTE | 2023-01-28 11:37 | DI.CT.S_ITS ---
PROCEDURE: CT ABDOMEN PELVIS W CON INDICATIONS: weight loss/transaminitis TECHNIQUE: After the administration of oral and intravenous contrast, axial sections were acquired from the lung bases to the pubic symphysis. Coronal and sagittal reformats were performed. For radiation dose reduction, the following was used: automated exposure control, adjustment of mA and/or kV according to patient size. COMPARISON:None. FINDINGS: Image quality: Excellent. Lung bases: Redemonstration of 9 mm nodule in the right lower lobe Heart: Heart is normal in size. Severe right coronary artery calcifications. ABDOMEN: Liver: Multiple low-density lesions throughout the liver, favored to represent simple cysts. Gallbladder: Unremarkable. Biliary ducts: Unremarkable. Pancreas: Unremarkable. Spleen: Unremarkable. Adrenal Glands: Unremarkable. Kidneys and Ureters: Left renal simple cyst. Kidneys otherwise enhance symmetrically without hydronephrosis or stones. Stomach and Bowel: Stomach, small bowel loops, and colon are unremarkable. Diverticulosis without evidence of acute diverticulitis. Normal appendix. Peritoneum: No abnormal intraperitoneal fluid. No free air. Ventral Wall: No hernia. Abdominal Nodes: No retroperitoneal or mesenteric adenopathy by size criteria. Vessels: Aorta and inferior vena cava are normal in size. Atherosclerotic vascular calcifications. PELVIS: Pelvic Organs: Mild prostatomegaly.. Bladder: Distended with fluid. No wall thickening. Left posterolateral diverticulum. Pelvic Nodes: No enlarged lymph nodes. Miscellaneous: Small left inguinal hernia containing fat. Bones: Degenerative changes of the spine. Decreased osseous mineralization. IMPRESSION: 1. No findings to explain patient's symptoms. 2. Diverticulosis without evidence of acute diverticulitis. 3. Redemonstration of 9 mm right lower lobe pulmonary nodule. Given stability, this is favored to be benign. Recommend follow-up as clinically indicated. 4. Mild prostatomegaly. The bladder is distended with fluid without wall thickening. There is a left posterolateral bladder wall diverticulum, may be secondary to chronic bladder outlet obstruction, correlate for urinary retention. 5. Extensive atherosclerotic vascular calcifications including severe right coronary artery calcifications. Dictated by: Samm Gilliam M.D. on 01/28/2023 at 14:31 Approved by: Samm Gilliam M.D. on 01/28/2023 at 14:39
== END ==
PROVIDERS: PCP Internal Medicine; Referring Provider Internal Medicine; Visit Provider Internal Medicine
DX: K57.90 Diverticulosis of intestine, part unspecified, without perforation or abscess without bleeding (principal); R91.1 Solitary pulmonary nodule; N28.1 Cyst of kidney, acquired; K40.90 Unilateral inguinal hernia, without obstruction or gangrene, not specified as recurrent; R63.4 Abnormal weight loss; R74.01 Elevation of levels of liver transaminase levels; N40.0 Benign prostatic hyperplasia without lower urinary tract symptoms; N32.3 Diverticulum of bladder; I70.0 Atherosclerosis of aorta; I25.10 Atherosclerotic heart disease of native coronary artery without angina pectoris; K76.9 Liver disease, unspecified
CPT/HCPCS: 74177; Q9967

== ENCOUNTER → 2023-02-05 15:42 | Outpatient (CLI) | payer MEDICARE, OTHER, SELFPAY ==
--- NOTE | 2023-02-05 | DI.US.S_ITS ---
PROCEDURE: US CAROTID DOPPLER BI INDICATIONS: BILATERAL CAROTID STENOSIS TECHNIQUE: Color and pulse Doppler interrogation was performed of both carotid systems, with image documentation and velocity measurements. COMPARISON: [facility], [place], US CAROTID DOPPLER BI, 11/14/2019, 7:43. FINDINGS: Stenosis calculations are based on SRU (Society of Radiologists in Ultrasound) criteria. Right side: Brachial blood pressure: 122/73 mm Hg. Common carotid artery peak systolic velocity: 80 cm/sec. Internal carotid artery peak systolic velocity: 85 cm/sec. Internal carotid artery end diastolic velocity: 26 cm/sec. External carotid artery peak systolic velocity: 89 cm/sec. ICA/CCA peak systolic ratio: 1.1 . [place] scale imaging description: Atherosclerotic plaque Percent internal carotid artery stenosis: Less than 50 . Vertebral artery: Flow direction is antegrade. Left side: Brachial blood pressure: 120/71 mm Hg. Common carotid artery peak systolic velocity: 97 cm/sec. Internal carotid artery peak systolic velocity: 62 cm/sec. Internal carotid artery end diastolic velocity: 26 cm/sec. External carotid artery peak systolic velocity: 58 cm/sec. ICA/CCA peak systolic ratio: 0.6 . [place] scale imaging description: Atherosclerotic plaque Percent internal carotid artery stenosis: Less than 50 . Vertebral artery: Flow direction is antegrade. IMPRESSION: Less than 50% stenosis, bilateral proximal ICA Approved by: Johnathan Osuna M.D. on 02/05/2023 at 19:28
== END ==
PROVIDERS: PCP Internal Medicine; Referring Provider Specialist; Visit Provider Specialist
DX: I65.23 Occlusion and stenosis of bilateral carotid arteries (principal)
CPT/HCPCS: 93880

== ENCOUNTER → 2023-11-06 08:40 | Outpatient (CLI) | payer MEDICARE, OTHER, SELFPAY ==
[2023-11-06 10:15] LABS: Alanine Aminotransferase 37 IU/L (<50); Albumin 4.1 g/dL (3.5-5.0); Albumin Globulin Ratio 1.7 (1.0-2.8); Alkaline Phosphatase 63 U/L (38-126); Aspartate Aminotransferase 50 IU/L (17-59); BUN Creatinine Ratio 17.8 (6-22); Bilirubin Total 0.6 mg/dL (0.2-1.3); Blood Urea Nitrogen 18 mg/dL (9-20); Carbon Dioxide 30 mmol/L (22-32); Chloride 107 mmol/L (98-107); Cholesterol 155 mg/dL (140-199); Estimated Glomerular Filt Rate > 60 mL/min (>60); Globulin 2.4 g/dL (1.7-4.1); Glucose 91 mg/dL (80-110); HDL Cholesterol 96 mg/dL (40-60); HEMOLYSIS < 15 (0-50); LDL Cholesterol Calculated 45 mg/dL (<100); Potassium 5.2 mmol/L (3.4-5.1); Sodium 139 mmol/L (137-145); Total Protein 6.5 g/dL (6.3-8.2); Triglycerides 68 mg/dL (35-150)
== END ==
PROVIDERS: PCP Internal Medicine; Referring Provider Specialist; Visit Provider Specialist
DX: E78.00 Pure hypercholesterolemia, unspecified (principal)
CPT/HCPCS: 36415; 80053; 80061

== ENCOUNTER → 2024-05-27 06:58 | Outpatient (CLI) | payer MEDICARE, OTHER, SELFPAY ==
[2024-05-27 08:16] LABS: Alanine Aminotransferase 45 IU/L (<50); Albumin 4.2 g/dL (3.5-5.0); Albumin Globulin Ratio 1.5 (1.0-2.8); Alkaline Phosphatase 55 U/L (38-126); Aspartate Aminotransferase 53 IU/L (17-59); BUN Creatinine Ratio 26.6 (6-22); Bilirubin Total 0.5 mg/dL (0.2-1.3); Blood Urea Nitrogen 29 mg/dL (9-20); Calcium 9.6 mg/dL (8.4-10.2); Carbon Dioxide 27 mmol/L (22-32); Chloride 106 mmol/L (98-107); Estimated Glomerular Filt Rate > 60 mL/min (>60); Globulin 2.8 g/dL (1.7-4.1); Glucose 90 mg/dL (80-110); HEMOLYSIS < 15 (0-50); Magnesium 1.8 mg/dL (1.6-2.3); Potassium 5.3 mmol/L (3.4-5.1); Sodium 136 mmol/L (137-145)
[2024-05-31 07:08] LABS: Cholesterol, Total 153 mg/dL (100-199); HDL-Cholesterol 81 mg/dL (>39); HDL-Particle (Total) 43.9 umol/L (>=30.5); Historical Reading Comment: (.); LDL Particle 392 nmol/L (<1000); LDL Size 20.8 nm (>20.5); LDL-Cholsterol 58 mg/dL (0-99); LP-IR Score 30 (<=45); Small LDL- Particle <90 nmol/L (<=527); Triglycerides 72 mg/dL (0-149)
== END ==
PROVIDERS: PCP Internal Medicine; Referring Provider Specialist; Visit Provider Specialist
DX: R25.2 Cramp and spasm (principal); I25.10 Atherosclerotic heart disease of native coronary artery without angina pectoris; I47.20 Ventricular tachycardia, unspecified
CPT/HCPCS: 36415; 80053; 80061; 83704; 83735

== ENCOUNTER → 2024-12-27 08:44 | Outpatient (CLI) | payer MEDICARE, SELFPAY ==
--- NOTE | 2024-12-27 | DI.US.S_ITS ---
PROCEDURE: US CAROTID DOPPLER BI INDICATIONS: STENOSIS/LIGHTHEADED TECHNIQUE: Color and pulse Doppler interrogation was performed of both carotid systems, with image documentation and velocity measurements. COMPARISON: [facility], [place], US CAROTID DOPPLER BI, 02/05/2023, 16:04. FINDINGS: Stenosis calculations are based on SRU (Society of Radiologists in Ultrasound) criteria. Right side: Brachial blood pressure: 118/70 mm Hg. Common carotid artery peak systolic velocity: 51 cm/sec. Internal carotid artery peak systolic velocity: 76 cm/sec. Internal carotid artery end diastolic velocity: 20 cm/sec. External carotid artery peak systolic velocity: 75 cm/sec. ICA/CCA peak systolic ratio: 1.5 . [place] scale imaging description: Atherosclerotic plaque Percent internal carotid artery stenosis: Less than 50 . Vertebral artery: Flow direction is antegrade. Left side: Brachial blood pressure: 123/74 mm Hg. Common carotid artery peak systolic velocity: 64 cm/sec. Internal carotid artery peak systolic velocity: 62 cm/sec. Internal carotid artery end diastolic velocity: 24 cm/sec. External carotid artery peak systolic velocity: 51 cm/sec. ICA/CCA peak systolic ratio: 1.0 . [place] scale imaging description: Atherosclerotic plaque Percent internal carotid artery stenosis: Less than 50 . Vertebral artery: Flow direction is antegrade. IMPRESSION: 1. In the right carotid artery, there is less than 50 stenosis based on peak systolic velocity criteria. 2. In the left carotid artery, there is a less than 50 stenosis based on peak systolic velocity criteria. 3. Antegrade vertebral arteries. Approved by: Johnathan Osuna M.D. on 12/27/2024 at 14:23
--- NOTE | 2024-12-27 | DI.ECHO.S_ITS ---
[facility] : : [id number] : [place] : : [id number] : : Phone: [phone] Echocardiogram Report + + :Name: HALLE MORSE Study Date: 12/27/2024 Height: 73 in : :[facility] ReadingLocation: Weight: 200 lb : : Gender: Male BSA: 2.2 m2 : :: 1950 Age: 74 yrs BP: 123/80 mmHg: :Reason For Study: STENOSIS, LIGHTHEADEDNESS : :Ordering Physician: RACHEL, : :CAROL Performed By: Ashvin Giron : :Referring: CAROL RAMOS : + + Interpretation Summary Left ventricular systolic function is normal with an estimated ejection fraction of 60 to 65% without focal wall motion abnormality. Left ventricular wall thickness is at the upper limits of normal with normal left ventricular volumes. Diastolic function cannot be accurately assessed because the mitral inflow velocities were not recorded. The right ventricle is at the upper limits of normal in size with normal systolic function. Right ventricular systolic pressure and CVP cannot be estimated. Both atria are normal in size. There is significant aortic valve calcification but only minimal reduction in leaflet mobility without any significant aortic stenosis. There are no functional valvular abnormalities identified. The aortic root and ascending aorta are mild to moderately enlarged. Procedure: A two-dimensional transthoracic echocardiogram with color flow and Doppler was performed. The study quality was technically good. There is no prior echocardiogram noted for this patient. The patient was in sinus rhythm with heart rates between 55-60 bpm during the exam. Left Ventricle: The left ventricle is normal in size. The estimated left ventricular end diastolic volume is 105 ml. Left ventricular wall thickness is borderline increased. There is no ventricular septal defect visualized. Left ventricular systolic function appears normal without focal wall motion abnormalities. The ejection fraction is estimated to be 60-65%. Diastolic function could not be accurately assessed due to unobtainable data. Right Ventricle: The right ventricle is at the upper limits of normal in size. The right ventricular systolic function is normal. Atria: Both atria are normal in size. Right atrial size is normal. There is no Doppler evidence for an interatrial shunt. Mitral Valve: The mitral valve leaflets appear borderline thickened. There is trace mitral regurgitation. Aortic Valve: The aortic valve is trileaflet. The aortic valve is moderately calcified. There is minimally reduced leaflet mobility. There is no hemodynamically significant valvular aortic stenosis. There is trace aortic regurgitation. Tricuspid Valve: The tricuspid valve leaflets are thin and pliable. There is trace tricuspid regurgitation. Pulmonary artery pressures cannot be estimated because of the lack of a measurable TR jet velocity. Pulmonic Valve: The pulmonic valve is not well seen, but is grossly normal. There is trace pulmonic regurgitation. Great Vessels: The aortic root is mildly dilated. The ascending aorta is mild-moderately enlarged. The pulmonary artery is normal size. The inferior vena cava was not visualized. Pericardium/ Pleura There is no pericardial effusion. MMode/2D Measurements & Calculations LVIDd: 5.0 cm LVOT diam: 2.3 cm LVIDs: 3.2 cm Ao root diam: 4.0 cm FS: 36.4 % asc Aorta Diam: 4.2 cm EPSS: 0.61 cm IVSd: 1.1 cm LVPWd: 1.1 cm LV quezada. diameter/BSA (cm/m^2): 2.3 LV sys. diameter/BSA (cm/m^2): 1.5 LA A2 area: 21.5 cm2 RA long axis: 5.4 cm LA A4 area: 17.4 cm2 RA area: 17.4 cm2 LA length (vol): 4.7 cm RA vol: 48.3 ml LA vol: 68.4 ml RA : 22.5 ml/m2 LA vol index: 31.8 ml/m2 RVD1 (basal): 3.9 cm RVD2 (mid): 3.4 cm TAPSE: 2.3 cm Doppler Measurements & Calculations Ao V2 max: 165.2 cm/sec LVOT Max Darío: 103.0 cm/sec Ao V2 mean: 106.1 cm/sec LV V1 max P.2 mmHg Ao max P.9 mmHg LV V1 VTI: 24.0 cm Ao mean P.4 mmHg SHAILA(I,D): 2.9 cm2 Ao V2 VTI: 33.9 cm SHAILA(V,D): 2.6 cm2 sev ratio: 0.71 SHAILA indexed to BSA (cm^2/m^2): 1.4 Med Peak E' Darío: 5.2 cm/sec PA V2 max: 117.4 cm/sec Lat Peak E' Darío: 5.1 cm/sec PA V2 mean: 73.5 cm/sec PA mean P.5 mmHg PA pr(Accel): 46.5 mmHg SV(OT): 98.7 ml Reading Physician:11:32 AM
== END ==
PROVIDERS: PCP Internal Medicine; Referring Provider Internal Medicine; Visit Provider Specialist
DX: I77.810 Thoracic aortic ectasia (principal); I77.89 Other specified disorders of arteries and arterioles; R42 Dizziness and giddiness; E78.00 Pure hypercholesterolemia, unspecified; I65.23 Occlusion and stenosis of bilateral carotid arteries
CPT/HCPCS: 93306; 93880

== ENCOUNTER → 2025-01-10 07:44 | Outpatient (CLI) | payer MEDICARE, OTHER, SELFPAY ==
[2025-01-10 08:54] LABS: Hematocrit 41.7 % (41-53); Hemoglobin 14.2 g/dL (13.5-17.5); Mean Corpuscular HGB Conc 34.1 % (30-36); Mean Corpuscular Hemoglobin 33.2 PG (26-34); Mean Corpuscular Volume 97.5 fL (80-100); Platelet Count 282 X10^3/uL (150-400)
[2025-01-10 09:37] LABS: Alanine Aminotransferase 36 IU/L (<50); Albumin 4.0 g/dL (3.5-5.0); Albumin Globulin Ratio 1.5 (1.0-2.8); Alkaline Phosphatase 63 U/L (38-126); Blood Urea Nitrogen 19 mg/dL (9-20); Calcium 9.0 mg/dL (8.4-10.2); Carbon Dioxide 26 mmol/L (22-32); Chloride 105 mmol/L (98-107); Estimated Glomerular Filt Rate > 60 mL/min (>60); Globulin 2.7 g/dL (1.7-4.1); Glucose 99 mg/dL (70-99); HEMOLYSIS < 15 (0-50); Magnesium 1.9 mg/dL (1.6-2.3); Potassium 4.6 mmol/L (3.4-5.1); Sodium 137 mmol/L (137-145); Total Protein 6.7 g/dL (6.3-8.2)
== END ==
PROVIDERS: PCP Internal Medicine; Referring Provider Specialist; Visit Provider Specialist
DX: E78.00 Pure hypercholesterolemia, unspecified (principal); I25.10 Atherosclerotic heart disease of native coronary artery without angina pectoris; I44.0 Atrioventricular block, first degree
CPT/HCPCS: 36415; 80053; 83735; 85027

== ENCOUNTER → 2025-05-04 12:04 | Outpatient (CLI) | payer MEDICARE, OTHER, SELFPAY ==
--- NOTE | 2025-05-04 12:06 | DI.RAD.S_ITS ---
PROCEDURE: XR CHEST 2V INDICATIONS: dyspnea TECHNIQUE: 2 views of the chest were acquired. COMPARISON: [facility], CR, XR CHEST 2V, 06/21/2019, 16:57. FINDINGS: Surgical changes and devices: None. Lungs and pleura: Lungs are clear. No pleural effusions or pneumothorax. Mediastinum: Mediastinal contours are normal. Heart size is normal. Bones and chest wall: No suspicious bony abnormalities. Soft tissues appear unremarkable. IMPRESSION: No acute cardiopulmonary abnormality is seen. Dictated by: Samm Gilliam M.D. on 05/04/2025 at 15:27 Approved by: Samm Gilliam M.D. on 05/04/2025 at 15:29
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
== END ==
PROVIDERS: PCP Internal Medicine; Referring Provider Internal Medicine; Visit Provider Internal Medicine
DX: M19.012 Primary osteoarthritis, left shoulder (principal); M25.512 Pain in left shoulder; R06.00 Dyspnea, unspecified
CPT/HCPCS: 71046; 73030